=== PATIENT | female | born 2000 | race Caucasian/White ===

== ENCOUNTER 2023-08-07 13:28 | Observation (INO) | payer SELFPAY ==
[2023-08-07] VITALS (14 sets, daily range): BP systolic 125–194; BP diastolic 79–129; PULSE 64–122; RESP 16–18; TEMP 37–37.7; O2SAT 95–96; BMI 23.8
--- NOTE | 2023-08-07 13:52 | ED.GENADUL1 ---
HPI - General Adult General Chief complaint: Abdominal Pain Stated complaint: ABD PAIN Time Seen by Provider: 08/07/23 13:31 Source: patient Mode of arrival: Wheelchair Limitations: no limitations History of Present Illness HPI narrative: Patient presents with recurrent nausea, vomiting and abdominal pain. She has presented to [facility] emergency department for evaluation several times this week. She just left there a couple of hours ago. She had blood testing and was given medications for being discharged home with prescriptions for additional outpatient medications. She is requesting admission. She said that for about would not admit her. She told me that she is unable to keep anything down orally despite taking medications on an outpatient basis. Call placed to [facility] emergency department to get a copy of the patient's chart from today. She said that her workup at [facility] was negative. She told me that she last smoked marijuana about a week ago. Related Data Allergies Allergy/AdvReac Type Severity Reaction Status Date / Time No Known Drug Allergies Allergy Verified 08/07/23 13:39 [facility] Social History Smoking status: Heavy tobacco smoker Exam Narrative Exam Narrative: Nurses notes and vital signs reviewed and patient is not hypoxic. afebrile General: Well-appearing and in no apparent distress. Skin: Warm, dry, no pallor noted. No rash. Head: Normocephalic, atraumatic. Neck: Supple, non-tender. No meningismus Eye: Pupils are equal, round and EOMI. No scleral icterus. Ears, Nose, Mouth, and Throat: Oral mucosa is dry Cardiovascular: Regular Rate and Rhythm without murmur, gallop or rub. Respiratory: No accessory muscle use or respiratory distress. Lungs are clear to auscultation, no wheezing, rales or rhonchi Back: No CVA tenderness Musculoskeletal: normal ROM, no lower extremity edema/swelling GI: Abdomen is soft, non-distended. Normal bowel sounds. No masses appreciated. Diffuse tenderness to palpation. No rebound, guarding, or rigidity noted. Neurological: A&O x4. No cranial nerve dysfunction observed. No truncal ataxia. Moves all extremities. Sensation intact. Psychiatric: Cooperative and interactive. Normal mood and affect. Constitutional Vital Signs, click to edit/add: Last Vital Signs Temp 98.8 F 08/07/23 13:33 Pulse 64 08/07/23 13:33 Resp 16 08/07/23 13:33 BP 148/86 H 08/07/23 13:47 Pulse Ox 96 08/07/23 13:33 O2 Del Method Room Air 08/07/23 13:33 Course Vital Signs Vital signs: Vital Signs Temperature 98.8 F 08/07/23 13:33 Pulse Rate 64 08/07/23 13:33 Respiratory Rate 16 08/07/23 13:33 Pulse Oximetry 96 08/07/23 13:33 Oxygen Delivery Method Room Air 08/07/23 13:33 Temperature 98.8 F 08/07/23 13:33 Pulse Rate 64 08/07/23 13:33 Respiratory Rate 16 08/07/23 13:33 Blood Pressure 148/86 H 08/07/23 13:47 Pulse Oximetry 96 08/07/23 13:33 Oxygen Delivery Method Room Air 08/07/23 13:33 Medical Decision Making MDM Narrative Medical decision making narrative: Patient with cyclic vomiting and recurrent, intractable abdominal pain, nausea and vomiting, prsents from [facility] requesting admission after [facility] refused to admit her. Patient just had blood drawn earlier today - no need to repeat. Case discussed with Dr Phillips who agreed to admit the patient to his service. Patient ordered to receive IV Haldol, IV Reglan and NS IVF. Discharge Plan Discharge Chief Complaint: Abdominal Pain Clinical Impression: Cyclic vomiting syndrome Patient Disposition: Admitted as Observation Time of Disposition Decision: 13:52
--- NOTE | 2023-08-07 15:38 | P.HP_ITS ---
<Statement entered by Shaikh Alan MD - 08/07/23 17:03> This documentation has been reviewed and approved. Patient was not seen for this encounter but her chart was reviewed and case discussed with Alena. Presented with intractable nausea and vomiting likely sec to Cyclic vomiting syndrome. Admitted for observation for IV fluids, supportive care so that her symptoms can improve and she is able to tolerate PO diet. H&P: HPI History of Present Illness Chief complaint: ABD PAIN CYCLIC VOMITING Narrative: 08/07/23 1445 This is a 22-year-old female patient with a benign past medical history except for tobacco and marijuana abuse, who presented to the ED complaining of persiste nt nausea and vomiting and abdominal pain for the last 4 to 5 days. She has presented to the [place] emergency department for evaluation several times earlier this week and in fact just left their ED a few hours before presentation at our facility. The patient reported that [place] refused to admit her and she was requesting admission at our facility. Her records from [place] were obtained and were noted as follows by the ED provider Dr. Bryson Garcia. Review of charts from [place] emergency department reveals that the patient had CT scanning of the abdomen pelvis which was notable for nonspecific small lymph nodes in the mesentery but nothing else worrisome. White count was normal, hemoglobin 15.6, potassium 3.1, urine sample was notable for protein and ketones, abdominal x-rays did not show any evidence of obstruction and a pelvic ultrasound was also unremarkable without evidence of ovarian torsion. The patient received GI cocktail, sucralfate and dicyclomine in the emergency department. She also received normal saline IV fluid. She was apparently discharged home with prescriptions for Benadryl, Toradol. Labs were not repeated at our ED. She is being admitted to the hospitalist service under observation for cyclic vomiting syndrome. At the time of my exam the pt is resting comfortably on a cart in the ED. She has dry mucous membranes. She reports her initial symptom was severe colicky type abdominal pain followed by the inability to keep any food or fluids down for the last 3-4 days. She denies diarrhea, fever, or recent sick contacts. She admits to frequent marijuana use, but reports no intake x 1 week. We discussed the need for complete cannabis cessation and that CHS can take some time to resolve after cessation of use. We also discussed that measures implemented during this hospitalization may not resolve or even significantly improve her symptoms. She verbalizes understanding. For now we will attempt a multi-modal approach with IV Haldol and Reglan x 1, PRN oxycodone, PRN zofran, capsaicin cream QID, and heating pad or showers PRN. Discharge likely in 12-24 hrs. Review of Systems ROS Status of ROS 10 or more systems reviewed and unremark able except as noted in history and below [facility] Medical History (Updated 08/07/23 @ 16:01 by Alena Law NP) Marijuana abuse, continuous ?F12.10 - Cannabis abuse, uncomplicated (ICD-10) Tobacco dependence ?F17.200 - Nicotine dependence, unspecified, uncomplicated (ICD-10) Social History (Updated 08/07/23 @ 16:02 by No Mendez) Within the past year, how often did you have a drink containing alcohol: 2-4 times a month Smoking status: Heavy tobacco smoker Non-prescribed substance use: cannabis (any form) Previous occupational history: Programeter Known occupational exposures/hazards: No Highest level of school completed/degree received: high school graduate Are you now , , , , never or living with a partner: never In a typical week, how many times do you talk on the telephone with family, friends, or neighbors: 3 or more times per week How often do you get together with friends or relatives: 3 or more times per week Little interest or pleasure in doing things: not at all Feeling down, depressed, or hopeless: not at all Feel stressed/tense/nervous/anxious/difficulty sleeping: not at all Do you think of yourself as: straight/heterosexual Gender Identity: female Meds Home Medications and Allergies Allergies Allergy/AdvReac Type Severity Reaction Status Date / Time No Known Drug Allergies Allergy Verified 08/07/23 13:39 Exam Constitutional Vital Signs, click to edit/add: Last Vital Signs Temp 98.8 F 08/07/23 13:33 Pulse 64 08/07/23 13:33 Resp 16 08/07/23 13:33 BP 148/86 H 08/07/23 13:47 Pulse Ox 96 08/07/23 13:33 O2 Del Method Room Air 08/07/23 13:33 Common normals: no apparent distress, oriented x3, alert and well nourished General appearance: cooperative Orientation/consciousness: Yes awake HENMT Common normals: normocephalic, head/scalp atraumatic, hearing grossly normal b ilaterally, external nose normal and moist oral mucous membranes Eye Common normals: PERRL, EOMs intact bilaterally, conjunctivae normal and no scleral icterus Alignment: alignment normal Eyelid: eyelids normal Neck & C-Spine Common normals: full ROM, supple and no JVD Chest Common normals: inspection of chest normal Chest: symmetrical chest wall rise Respiratory Common normals: normal respiratory effort, no retractions and no use of accessory muscles Effort & inspection: able to speak in complete sentences Auscultation: wheezes (Faint EE ANDREW) Cardio Common normals: no JVD, regular rate, regular rhythm, S1 normal heart sound, S2 normal heart sound, no gallops, no clicks, no murmurs, no rub and peripheral pulses 2+ throughout GI Common normals: Normal to inspection, nondistended, normoactive bowel sounds present, soft to palpation, no hepatosplenomegaly, no masses and no bruits Palpation: tender (Diffuse, non-focal); not firm, no guarding, not rigid and no rebound tenderness present Bladder/kidney exam: bladder normal to palpation Back & Pelvis Common normals: thoracic and lumbar spine normal to inspection Extremity Common normals: normal capillary refill and no pedal edema General: normal exam except as noted; no clubbing and no cyanosis Neuro [place] Coma Scale: GCS not evaluated Common normals: CN's II-XII intact bilaterally, moves all extremities, no focal motor deficits and no sensory deficits noted Speech: speech normal Motor exam: strength 5/5 throughout Psych Common normals: mental status grossly normal, thought process normal, affect normal and activity/motor behavior normal Results Pulse Oximetry Attestation: I have reviewed the pertinent pulse oximetry results. Assessment and Plan Assessment and Plan (1) Cyclic vomiting syndrome: Assessment and Plan: ACUTE * Adm observation * Suspect 2/2 CHS * LR @ 125/hr * IVP Haldol and Reglan x 1 * Zofran IVP PRN * Capsaicin QID, Oxycodone q6h PRN * Warm application w/ heating pad or showers to abdomen * CBC, CMP in AM (2) Dehydration: Assessment and Plan: ACUTE * 2/2 poor oral intake and cyclic vomiting * IVF as above * CMP in AM (3) Hypokalemia: Assessment and Plan: ACUTE * Mild, 3.1 at [place] ED earlier today * No documentation of treatment * 2/2 cyclic vomiting/GI losses * Replete w/ 20 meq KCL IV * Tele monitoring * Repeat CMP & check Mag level too in AM (4) Tobacco dependence: Assessment and Plan: CHRONIC * Pt reports daily, frequent vape use * 7mg Nicoderm patch daily * Tobacco cessation advised (5) Marijuana abuse, continuous: Assessment and Plan: CHRONIC * Complete cessation advised - pt verbalizes understanding * Suspect CHS as source of cyclic vomiting
[2023-08-07] MEDS: OXYCODONE HCL 5 MG TABLET PO ×2 (16:11→21:58)
--- NOTE | 2023-08-07 16:11 | PC.NURSE ---
Meds not marked off in MAR that should have been given in ER. Memorandum Statement Clerk called and talked with ROBB Bahena. She states she didn't see the orders so those meds were never given. Memorandum Statement Clerk marked off in MAR as not given.
[2023-08-07] MEDS: LACTATED RINGER'S SOLUTION 1,000 ML 125 ML IV ×2 (16:12→23:17)
[2023-08-07] MEDS: HYDRALAZINE HCL 20 MG/ML VIAL 10 MG IVP (16:13)
--- NOTE | 2023-08-07 16:43 | ECG_ITS ---
[facility] Test Date: 2023-08-07 Pat Name: JASON LI Department: Room: [facility] Gender: Female Business Project Manager: : 2000 Requested By: Order Number: [id number] Reading MD: LYNN MARTINEZ Measurements Intervals [place] Rate: 79 P: 9 TX: 146 QRS: 62 QRSD: 81 T: 34 QT: 410 QTc: 471 Interpretive Statements SINUS RHYTHM WITH SINUS ARRHYTHMIA Nonspecific ST/T wave changes, consider anterior ischemia No previous ECG available for comparison Electronically Signed On 08-08-2023 7:26:55 EST by LYNN MARTINEZ
[2023-08-07] MEDS: ACETAMINOPHEN 325 MG TABLET 650 MG PO (17:43)
[2023-08-07] MEDS: HALOPERIDOL LACTATE 5 MG/ML VIAL IV (17:45)
[2023-08-07] MEDS: POTASSIUM CHLORIDE IN WATER 10 MEQ/100 ML PIGGYBACK 100 MEQ IV ×2 (18:18→20:46)
[2023-08-07] MEDS: METOCLOPRAMIDE HCL 10 MG/2 ML VIAL IVP (18:18)
[2023-08-07] MEDS: ENOXAPARIN SODIUM 40 MG/0.4 ML SYRINGE SUBQ (18:44)
[2023-08-07] MEDS: 0.9 % SODIUM CHLORIDE 1,000 ML 1000 ML IV (20:45)
[2023-08-07] MEDS: ONDANSETRON PF 4 MG/2 ML VIAL IV (21:59)
[2023-08-07] MEDS: CAPSAICIN 0.025% CREAM 60 GM TUBE 1 APPLIC TOPICAL (22:04)
[2023-08-07 22:11] LABS: Amphetamine Screen Urine NEGATIVE (NEGATIVE); Barbiturates Screen Urine NEGATIVE (NEGATIVE); Benzodiazepines Screen Urine NEGATIVE (NEGATIVE); Buprenorphine Screen Urine NEGATIVE (NEGATIVE); Cannabinoid Screen Urine POSITIVE (NEGATIVE); Cocaine Screen Urine NEGATIVE (NEGATIVE); Methadone Screen Urine NEGATIVE (NEGATIVE); Methamphetamines Screen Urine NEGATIVE (NEGATIVE); Opiate Screen Urine NEGATIVE (NEGATIVE); Oxycodone Screen Urine NEGATIVE (NEGATIVE); Phencyclidine Screen Urine NEGATIVE (NEGATIVE); Tricyclic Antidepressant Urine NEGATIVE (NEGATIVE)
[2023-08-08] VITALS (11 sets, daily range): BP systolic 123–127; BP diastolic 73–77; PULSE 58–92; RESP 18; TEMP 36.7–37.1; O2SAT 95
[2023-08-08 04:26] LABS: Basophils Percent Auto 0.3 % (0.2-2.0); Eosinophils Percent Auto 0.1 % (0.9-7.0); Hematocrit 39.5 % (36.0-48.0); Hemoglobin 12.8 g/dL (12.0-16.0); Immature Granulocytes Abs Auto 0.02 10^3/uL (0.00-0.03); Immature Granulocytes Pct Auto 0.3 % (0.0-0.5); Lymphocytes Percent Auto 26.6 % (20.5-60.0); Mean Corpuscular HGB Conc 32.4 g/dL (29.9-35.2); Mean Corpuscular Hemoglobin 28.5 pg (26.7-34.0); Mean Platelet Volume 9.6 fL (9.5-13.5); Monocytes Absolute Auto 0.7 10^3/uL (0.3-0.8); Monocytes Percent Auto 9.1 % (1.7-12.0); Neutrophils Absolute Auto 4.9 10^3/uL (1.4-6.5); Neutrophils Percent Auto 63.6 % (43.0-75.0); Platelet Count 235 10^3/uL (150-450); Red Blood Count 4.49 10^6/uL (4.20-5.40); Red Cell Distribution Width 12.6 % (11.0-15.0); White Blood Count 7.6 10^3/uL (4.0-11.0)
[2023-08-08 04:43] LABS: Magnesium 2.1 mg/dL (1.8-2.4)
[2023-08-08 04:48] LABS: Alanine Aminotransferase 16 U/L (14-59); Albumin Globulin Ratio 1.2; Albumin Level 3.3 g/dL (3.4-5.0); Alkaline Phosphatase 42 U/L (46-116); Anion Gap 13.7; Aspartate Amino Transferase 18 U/L (15-37); BUN Creatinine Ratio 11.9; Calcium 8.5 mg/dL (8.5-10.1); Carbon Dioxide 22.9 mmol/L (21.0-32.0); Chloride 108 mmol/L (98-107); Estimated GFR (African America >60 (>=60); Estimated GFR (Non-African Ame >60 (>=60); Globulin 2.8 g/dL; Glucose 94 mg/dL (74-106); Potassium 3.6 mmol/L (3.5-5.1); Sodium 141 mmol/L (136-145); Total Protein 6.1 g/dL (6.4-8.2)
[2023-08-08] MEDS: LACTATED RINGER'S SOLUTION 1,000 ML 125 ML IV ×2 (05:52→14:17)
[2023-08-08] MEDS: CAPSAICIN 0.025% CREAM 60 GM TUBE 1 APPLIC TOPICAL ×3 (05:53→17:23)
[2023-08-08] MEDS: OXYCODONE HCL 5 MG TABLET PO (09:32)
[2023-08-08] MEDS: ONDANSETRON PF 4 MG/2 ML VIAL IV (09:32)
[2023-08-08] MEDS: PANTOPRAZOLE SODIUM 40 MG VIAL IV (11:59)
[2023-08-08] MEDS: ALPRAZOLAM 1 MG TABLET PO (11:59)
[2023-08-08] MEDS: ACETAMINOPHEN 325 MG TABLET 650 MG PO (11:59)
--- NOTE | 2023-08-08 12:41 | CM.NOTE ---
Rounds made with Dr. Phillips, discussed with pt cyclic vomiting and cause for condition. Pt's abdominal pain and nausea continue, no discharge today.
--- NOTE | 2023-08-08 16:31 | P.DS_ITS ---
DS: Providers Provider Date of admission: 08/07/23 15:25 Primary care physician: Non-Staff Physician, Attending physician on discharge: Shaikh Alan Discharging clinician: Shaikh Alan Anticipated date of discharge: 08/08/23 DS: Diagnosis Discharge Diagnosis (1) Cyclic vomiting syndrome: Assessment and plan: Symptoms well controlled now. Likely due to marijuana use. Stable for discharge on zofran as needed (2) Dehydration: Assessment and plan: due to poor PO intake, nausea, vomiting. Received IV hydration for it. Able to tolerate PO diet now. Stable for d/c (3) Hypokalemia: Assessment and plan: Due to nausea, vomiting. Repleted. (4) Tobacco dependence: Assessment and plan: Counseled on smoking cessation (5) Marijuana abuse, continuous: Assessment and plan: Counseled and educated on marijuana abuse. DS: Summary Hospital Course Hospital Course: Patient presented with 4-5 day hx of intractable nausea and vomiting sec to cannabis hyperemesis syndrome and cyclical vomiting and was admitted overnight for intractable nausea, vomiting and inability to tolerate PO diet. She was treated with IVF, anti emetics, heating pad, capsaicin cream. Earlier this morning, I noted that patient was also very anxious for which I ordered Xanax for her. Earlier in morning, she was still experiencing nausea and was unable to keep her breakfast down. However, later in the afternoon, she felt better, was resting comfortable and was able to keep her lunch down. Stable for discharge. Patient encouraged to refrain from marijuana use. Will d/c on PO zofran as needed. Status at Discharge Functional status at discharge: independent ambulation Overall status at discharge: patient is back to baseline Time Spent with Patient Time attestation: Total time spent providing and/or coordinating discharge services: Time spent: greater than 30 minutes Exam Constitutional Vital Signs, click to edit/add: Last Vital Signs Temp 98.0 F 08/08/23 14:00 Pulse 92 H 08/08/23 15:00 Resp 18 08/08/23 14:00 BP 123/77 08/08/23 14:00 Pulse Ox 95 08/08/23 14:00 O2 Del Method Room Air 08/08/23 14:00 General appearance: cooperative Orientation/consciousness: Yes awake, Yes oriented to person, Yes oriented to place and Yes oriented to time Respiratory Common normals: normal respiratory effort and no use of accessory muscles Effort & inspection: able to speak in complete sentences Other: Faint exp wheezing Cardio Common normals: no JVD, regular rate, regular rhythm, S1 normal heart sound and S2 normal heart sound GI Common normals: Normal to inspection, nondistended, normoactive bowel sounds present, soft to palpation and non-tender Neuro Common normals: oriented x3, CN's II-XII intact bilaterally, moves all extremities and no focal motor deficits DS: Data Data Completed and Pending Labs on day of discharge: Labs from last 24 hours 08/08/23 08/07/23 04:16 21:45 WBC 7.6 RBC 4.49 Hgb 12.8 Hct 39.5 MCV 88.0 MCH 28.5 MCHC 32.4 RDW 12.6 Plt Count 235 MPV 9.6 Neut % (Auto) 63.6 Lymph % (Auto) 26.6 [place] % (Auto) 9.1 Eos % (Auto) 0.1 L Baso % (Auto) 0.3 Neut # (Auto) 4.9 Lymph # (Auto) 2.0 [place] # (Auto) 0.7 Eos # (Auto) 0.0 Baso # (Auto) 0.0 Abs Immat Gran (auto) 0.02 Imm/Tot Granulo (auto) 0.3 Sodium 141 Potassium 3.6 Chloride 108 H Carbon Dioxide 22.9 Anion Gap 13.7 BUN 7.0 Creatinine 0.59 Est GFR ( Amer) >60 Est GFR (Non-Af Amer) >60 BUN/Creatinine Ratio 11.9 Glucose 94 Calcium 8.5 Magnesium 2.1 Total Bilirubin 1.0 AST 18 ALT 16 Alkaline Phosphatase 42 L Total Protein 6.1 L Albumin 3.3 L Globulin 2.8 Albumin/Globulin Ratio 1.2 Urine Opiates Screen Negative Ur Buprenorphine Scrn Negative Ur Oxycodone Screen Negative Urine Methadone Screen Negative Ur Barbiturates Screen Negative U Tricyclic Antidepress Negative Ur Phencyclidine Scrn Negative Ur Amphetamines Screen Negative U Methamphetamines Scrn Negative U Benzodiazepines Scrn Negative Urine Cocaine Screen Negative U Cannabinoids Screen Positive A Discharge Plan Discharge Disposition: Home, Self-Care Discharge Medications: New ondansetron 4 mg tablet,disintegrating 4 mg PO Q8H PRN (Reason: nausea and vomiting) 5 Days Qty: 10 0RF Activity: increase activity as tolerated Diet: advance to your usual diet Forms: Portal Instructions Follow Up Appointments: F/u with PCP in one week
[2023-08-08] MEDS: IPRATROPIUM/ALBUTEROL SULFATE 3 ML AMPUL.NEB IH (16:49)
--- NOTE | 2023-08-11 10:32 | CM.DCFOLLOWU ---
Person spoke with: patient Patient has been admitted to [facility].
== END 2023-08-08 18:03 | disposition home or self-care (01) ==
LOC: ER 14:45 → MS 15:33
PROVIDERS: Nurse Practitioner; Admitting Provider Internal Medicine; Emergency Provider Emergency Medicine; Visit Provider Internal Medicine
DX: R11.15 Cyclical vomiting syndrome unrelated to migraine (principal); E86.0 Dehydration; E87.6 Hypokalemia; F17.210 Nicotine dependence, cigarettes, uncomplicated; F12.10 Cannabis abuse, uncomplicated
CPT/HCPCS: 36415; 80053; 80307; 83735; 85025; 93005; 94640; 96361; 96365; 96366; 96372; 96375; 96376; 99285; G0378; J0360; J1630; J1650; J2405; J2765; J3480

== ENCOUNTER 2023-08-11 14:00 | Emergency (ER) | payer SELFPAY ==
--- OUTSIDE RECORDS SUMMARY | 2023-08-11 14:15 | XMS_ITS | CCD ---
Author Name Unknown Address [address] [place] [address] Organization [facility] Care Team Providers Care Management Supervisor Name Role Phone Yulissa Sanjuana Primary Care Unavailable Gonya, Sanjuana Attending Unavailable SCHERGER GONYA, SANJUANA M Primary Care Unav ailable URBINAGOSIA Attending Unavailable BLAS, ROBERTO Attending Unavailable BLAS, ROBERTO Referring Unavailable SCHERGER GONYA, SANJUANA M Primary Care Unav ailable SCHERGER GONYA, SANJUANA M Primary Care Unav ailable DENISE KEY Attending Unavailable SCHERGER GONYA, SANJUANA M Primary Care Unav ailable SCHERGER GONYA, SANJUANA M Primary Care Unav ailable VICTORINO, MARLENA FABIAN Attending Unavailable VICTORINO, MARLENA FABIAN Attending Unavailable VICOTRINO, MARLENA FABIAN Referring Unavailable SCHERGER GONYA, SANJUANA M Primary Care Unav ailable VICTORINO, MARLENA FABIAN Attending Unavailable VICTORINO, MARLENA FABIAN Referring Unavailable SCHERGER GONYA, SANJUANA M Primary Care Unav ailable SCHERGER GONYA, SANJUANA M Primary Care Unav ailable TYE OLIVER Attending Unavailable ANTOLIN, MUHAMID M Admitting Unavailable Allergies Allergy Classification Reported Allergen(s) Allergy Type Date of Onset Reaction(s) Facility (1 source) No Known Medication Allergies; Translations: [No Known Medication Allergies] Propensity to adverse reactions to drug (disorder) [facility] Repository (1 source) RINGER'S SOLUTION,LACTATE D; Translations: [RINGER'S SOLUTION,LACTATE D] Propensity to adverse reactions to drug (disorder) [facility] Repository Problems Problem Classification Problem Date Documented Da te Episodic/Chronic Abdominal pain (3 sources) Generalized abdominal pain; Translations: [Unspecified abdominal pain] Onset: 08-03-2023 Episodic Fluid and electrolyte disorders (2 sources) Hypokalemia; Translations: [Dehydration] Onset: 08-07-2023 Episodic Menstrual disorders (1 source) Dysmenorrhea, unspecified; Translations: [Dysmenorrhea, unspecified] Onset: 08-07-2023 Chronic Nausea and vomiting (2 sources) Nausea with vomiting, unspecified; Translations: [Vomiting] Onset: 08-03-2023 Episodic Substance-related disorders (2 sources) Cannabis abuse, uncomplicated; Translations: [Cannabis abuse with other cannabis-induced disorder] Onset: 08-06-2023 Chronic Unclassified (1 source) vomiting, lightheaded Onset: 08-03-2023 Results Test Name Value Interpretation Reference Range Facility CBC AND AUTO DIFFon 08-11-19 ABSOLUTE BASOPHIL 0.0 X10E9/L Normal 0.0-0.[address] [facility] Comment on above: Performed By: #### C MICAH CMP, 3040-3, , 77024-2 #### [facility] ([id number]) [address] [place] [address] 68705 ABSOLUTE NEUTROPHIL 5.8 X10E9/L Normal 1.5-6.6 [facility] Comment on above: Performed By: #### C MICAH, CMP, 3040-3, , 42554-0 #### [facility] ([id number]) [address] [place] [address] 17350 Basophils/100 WBC (Bld) 0.2 % Normal [facility] Comment on above: Performed By: #### C BCA, CMP, 3040-3, , 74461-4 #### [facility] ([id number]) [address] [place] [address] 42165 Eosinophils (Bld) [#/Vol] 0.0 10*3/uL Normal 0.0-0.[address] [facility] Comment on above: Performed By: #### Vincenzo BCA, CMP, 3040-3, , 38561-6 #### [facility] ([id number]) [address] [place] [address] 79868 Eosinophils/100 WBC (Bld) 0.2 % Normal [facility] Comment on above: Performed By: #### C MICAH, CMP, 3040-3, , 99099-0 #### [facility] ([id number]) [address] [place] [address] 70639 Erythrocyte distribution width (RBC) [Ratio] 13.2 % Normal 11.5-15.[address] [facility] Comment on above: Performed By: #### C MICAH, CMP, 3039-3, , 35128-0 #### [facility] ([id number]) [address] [place] [address] 47606 Hematocrit (Bld) [Volume fraction] 42.0 % Normal 35-[address] [facility] Comment on above: Performed By: #### C BCA, CMP, 0-3, , 36130-2 #### [facility] ([id number]) [address] [place] [address] 60256 Hemoglobin (Bld) [Mass/Vol] 14.4 g/dL Normal 11.7-15.[address] [facility] Comment on above: Performed By: #### Vincenzo OBRIEN, CMP, 0-3, , 37925-7 #### [facility] ([id number]) [address] [place] [address] 67511 Lymphocytes (Bld) [#/Vol] 1.0 10*3/uL Normal 1.0-3.[address] [facility] Comment on above: Performed By: #### C BCA, CMP, 3040-3, , 95814-2 #### [facility] ([id number]) [address] [place] [address] 34303 Lymphocytes/100 WBC (Bld) 14.1 % Normal [facility] Comment on above: Performed By: #### C BCA, CMP, 3040-3, 91256-8, 71779-0 #### [facility] ([id number]) [address] [place] [address] 49104 MCH (RBC) [Entitic mass] 29.1 pg Normal 27-[address] [facility] Comment on above: Performed By: #### C BCA, CMP, 3040-3, 98616-9, 91715-3 #### [facility] ([id number]) [address] [place] [address] 61975 MCHC (RBC) [Mass/Vol] 34.2 g/dL Normal 32-36 [facility] Comment on above: Performed By: #### C BCA, CMP, 3040-3, 95418-8, 64420-0 #### [facility] ([id number]) [address] [place] [address] 76564 MCV (RBC) [Entitic vol] 85 fL Normal 80-[address] [facility] Comment on above: Performed By: #### C BCA, CMP, 3040-3, 45121-1, 19750-0 #### [facility] ([id number]) [address] [place] [address] 40488 Monocytes (Bld) [#/Vol] 0.6 10*3/uL Normal 0-0.[address] [facility] Comment on above: Performed By: #### C BCA, CMP, 3040-3, 37110-5, 54709-3 #### [facility] ([id number]) [address] [place] [address] 64108 Monocytes/100 WBC (Bld) 7.7 % Normal [facility] Comment on above: Performed By: #### C BCA, CMP, 3040-3, 56868-3, 73632-2 #### [facility] ([id number]) [address] [place] [address] [place] [address] Neutrophils/100 WBC (Bld) 77.8 % Normal [facility] Comment on above: Performed By: #### C BCA, CMP, 3040-3, 54690-3, 51321-9 #### [facility] ([id number]) [address] [place] [address] 86656 Platelet mean volume (Bld) [Entitic vol] 8.1 fL Normal 7-[address] [facility] Comment on above: Performed By: #### C BCA, CMP, 3040-3, 10354-0, 19389-4 #### [facility] ([id number]) [address] [place] [address] 44779 Platelets (Bld) [#/Vol] 253 10*3/uL Normal 150-[address] [facility] Comment on above: Performed By: #### Vincenzo BCA, CMP, 3040-3, , 23288-4 #### [facility] ([id number]) [address] [place] [address] 17304 RBC COUNT 4.95 X10E12/L Normal 3.80-5.[address] [facility] Comment on above: Performed By: #### C BCA, CMP, 3040-3, , 59408-4 #### [facility] ([id number]) [address] [place] [address] 55701 WBC (Bld) [#/Vol] 7.4 10*3/uL Normal 4.0-11.[address] [facility] Comment on above: Performed By: #### C BCA, CMP, 3040-3, , 05117-6 #### [facility] ([id number]) [address] [place] [address] 89808 COMPREHENSIVE METABOLIC PANE Taran 08-11-2023 Albumin [Mass/Vol] 4.6 g/dL Normal 3.2-5.[address] [facility] Comment on above: Performed By: #### C BCA, CMP, 3040-3, 38745-0, 52097-0 #### [facility] ([id number]) [address] [place] [address] 18672 ALP [Catalytic activity/Vol] 47 U/L Normal 39-[address] [facility] Comment on above: Performed By: #### C BCA, CMP, 3040-3, 12152-9, 25392-0 #### [facility] ([id number]) [address] [place] [address] 34281 ALT [Catalytic activity/Vol] 17 U/L Normal 0-[address] [facility] Comment on above: Performed By: #### C BCA, CMP, 3040-3, 14450-7, 71848-9 #### [facility] ([id number]) [address] [place] [address] 67138 Anion gap [Moles/Vol] 9 mmol/L Normal 5-15 [facility] Comment on above: Performed By: #### C BCA, CMP, 3040-3, , 65509-6 #### [facility] ([id number]) [address] [place] [address] 43653 AST [Catalytic activity/Vol] 16 U/L Normal 0-[address] [facility] Comment on above: Performed By: #### C BCA, CMP, 3040-3, , 21659-7 #### [facility] ([id number]) [address] [place] [address] 11292 Bilirubin [Mass/Vol] 0.8 mg/dL Normal 0.3-1.2 [facility] Comment on above: Performed By: #### C BCA, CMP, 3040-3, 73809-6, 56225-1 #### [facility] ([id number]) [address] [place] [address] 19714 Calcium [Mass/Vol] 9.0 mg/dL Normal 8.5-10.[address] [facility] Comment on above: Performed By: #### C MICAH, CMP, 3040-3, 65284-4, 68081-2 #### [facility] ([id number]) [address] [place] [address] 98156 Chloride [Moles/Vol] 102 mmol/L Normal 98-109 [facility] Comment on above: Performed By: #### C BCA, CMP, 3040-3, , 33918-7 #### [facility] ([id number]) [address] [place] [address] 59240 CO2 [Moles/Vol] 23 mmol/L Normal 22-[address] [facility] Comment on above: Performed By: #### C MICAH, CMP, 0-3, , 60826-6 #### [facility] ([id number]) [address] [place] [address] 41927 Creatinine [Mass/Vol] 0.61 mg/dL Normal 0.40-1.00 [facility] Comment on above: Result Comment: METH OD TRACEABLE TO IDMS STANDARD Performed By: #### C MICAH, CMP, 0-3, , 07105-7 #### [facility] ([id number]) [address] [place] [address] 05398 eGFR (CKD-EPI) NON-RACE DEPENDENT >90 Normal >[address] [facility] Comment on above: Result Comment: Reported eGFR is based on the CKD-EPI 2021 equation that does not use a race coefficient. Performed By: #### C BCA, CMP, 3040-3, 49783-9, 07527-8 #### [facility] ([id number]) [address] [place] [address] 57314 Glucose [Mass/Vol] 90 mg/dL Normal 65-[address] [facility] Comment on above: Performed By: #### C BCA, CMP, 3040-3, , 87802-5 #### [facility] ([id number]) [address] [place] [address] 91425 Potassium [Moles/Vol] 4.0 mmol/L Normal 3.5-5.0 [facility] Comment on above: Performed By: #### C BCA, CMP, 3040-3, 07591-3, 31898-9 #### [facility] ([id number]) [address] [place] [address] 46276 Protein [Mass/Vol] 7.4 g/dL Normal 6.0-8.[address] [facility] Comment on above: Performed By: #### C BCA, CMP, 0-3, , 72117-9 #### [facility] ([id number]) [address] [place] [address] 67261 Sodium [Moles/Vol] 134 mmol/L Normal 134-[address] [facility] Comment on above: Performed By: #### C BCA, CMP, 0-3, , 58097-2 #### [facility] ([id number]) [address] [place] [address] 08159 Urea nitrogen [Mass/Vol] 7 mg/dL Normal 5-[address] [facility] Comment on above: Performed By: #### C BCA, CMP, 3040-3, , 05117-1 #### [facility] ([id number]) [address] [place] [address] 27484 MAGNESIUMon 08-11-2023 Magnesium [Mass/Vol] 2.3 mg/dL Normal 1.8-2.6 [facility] Comment on above: Performed By: #### C BCA, CMP, 3040-3, , 41386-3 #### [facility] ([id number]) [address] [place] [address] 66800 COMPLETE BLOOD COUNTon 08-10 Erythrocyte distribution width (RBC) [Ratio] 13.1 % Normal 11.5-15.[address] [facility] Comment on above: Performed By: #### C MICAH, CMP, 3040-3, 69170-9, 52735-3 #### [facility] ([id number]) [address] [place] [address] 41706 Hematocrit (Bld) [Volume fraction] 47.9 % High 35-[address] [facility] Comment on above: Performed By: #### C BCA, CMP, 3040-3, , 79221-0 #### [facility] ([id number]) [address] [place] [address] 76010 Hemoglobin (Bld) [Mass/Vol] 16.1 g/dL High 11.7-15.[address] [facility] Comment on above: Performed By: #### C MICAH, CMP, 3040-3, , 09979-0 #### [facility] ([id number]) [address] [place] [address] 30110 MCH (RBC) [Entitic mass] 28.5 pg Normal 27-[address] [facility] Comment on above: Performed By: #### C MICAH, CMP, 3040-3, , 77670-4 #### [facility] ([id number]) [address] [place] [address] 72485 MCHC (RBC) [Mass/Vol] 33.6 g/dL Normal 32-36 [facility] Comment on above: Performed By: #### C BCA, CMP, 3040-3, , 19425-4 #### [facility] ([id number]) [address] [place] [address] 03510 MCV (RBC) [Entitic vol] 85 fL Normal 80-[address] [facility] Comment on above: Performed By: #### C BCA, CMP, 3040-3, , #### [facility] ([id number]) [address] [place] [address] 73895 Platelet mean volume (Bld) [Entitic vol] 8.2 fL Normal 7-[address] [facility] Comment on above: Performed By: #### C BCA, CMP, 3040-3, 89457-1, 79498-5 #### [facility] ([id number]) [address] [place] [address] 77727 Platelets (Bld) [#/Vol] 320 10*3/uL Normal 150-[address] [facility] Comment on above: Performed By: #### C BCA, CMP, 3040-3, , 40085-1 #### [facility] ([id number]) [address] [place] [address] 67128 RBC COUNT 5.65 X10E12/L High 3.80-5.[address] [facility] Comment on above: Performed By: #### C BCA, CMP, 3040-3, 08884-8, 52594-5 #### [facility] ([id number]) [address] [place] [address] 76227 WBC (Bld) [#/Vol] 13.1 10*3/uL High 4.0-11.0 [facility] Comment on above: Performed By: #### C BCA, CMP, 3040-3, , 61147-9 #### [facility] ([id number]) [address] [place] [address] 21284 COMPREHENSIVE METABOLIC PANE Taran 08-10-2023 Albumin [Mass/Vol] 5.5 g/dL High 3.2-5.[address] [facility] Comment on above: Performed By: #### C BCA, CMP, 3040-3, 25805-7, 47198-7 #### [facility] ([id number]) [address] [place] [address] 01659 ALP [Catalytic activity/Vol] 56 U/L Normal 39-[address] [facility] Comment on above: Performed By: #### C BCA, CMP, 3040-3, 74415-9, 99720-2 #### [facility] ([id number]) [address] [place] [address] 25531 ALT [Catalytic activity/Vol] 19 U/L Normal 0-[address] [facility] Comment on above: Performed By: #### C BCA, CMP, 3040-3, 48072-4, 47768-6 #### [facility] ([id number]) [address] [place] [address] 63079 Anion gap [Moles/Vol] 14 mmol/L Normal 5-15 [facility] Comment on above: Performed By: #### C BCA, CMP, 3040-3, 59719-1, 66625-0 #### [facility] ([id number]) [address] [place] [address] 78453 AST [Catalytic activity/Vol] 28 U/L Normal 0-[address] [facility] Comment on above: Performed By: #### C BCA, CMP, 3040-3, , 55674-1 #### [facility] ([id number]) [address] [place] [address] 28469 Bilirubin [Mass/Vol] 0.9 mg/dL Normal 0.3-1.2 [facility] Comment on above: Performed By: #### C BCA, CMP, 3040-3, 67606-7, 75313-8 #### [facility] ([id number]) [address] [place] [address] 97130 Calcium [Mass/Vol] 9.4 mg/dL Normal 8.5-10.[address] [facility] Comment on above: Performed By: #### C BCA, CMP, 3040-3, 60423-0, 92917-0 #### [facility] ([id number]) [address] [place] [address] 29645 Chloride [Moles/Vol] 99 mmol/L Normal 98-109 [facility] Comment on above: Performed By: #### C OLEGARIO OBRIEN, 3040-3, 26804-8, 64878-6 #### [facility] ([id number]) [address] [place] [address] 68422 CO2 [Moles/Vol] 22 mmol/L Normal 22-[address] [facility] Comment on above: Performed By: #### C OLEGARIO OBRIEN, 3040-3, , 44069-1 #### [facility] ([id number]) [address] [place] [address] 13052 Creatinine [Mass/Vol] 0.78 mg/dL Normal 0.40-1.00 [facility] Comment on above: Result Comment: METH OD TRACEABLE TO IDMS STANDARD Performed By: #### C OLEGARIO OBRIEN, 0-3, , 04713-8 #### [facility] ([id number]) [address] [place] [address] 56358 eGFR (CKD-EPI) NON-RACE DEPENDENT >90 Normal >[address] [facility] Comment on above: Result Comment: Reported eGFR is based on the CKD-EPI 2020 equation that does not use a race coefficient. Performed By: #### C OLEGARIO OBRIEN, 3040-3, , 86304-0 #### [facility] ([id number]) [address] [place] [address] 41022 Glucose [Mass/Vol] 117 mg/dL High 65-[address] [facility] Comment on above: Performed By: #### C MICAH, OLEGARIO, 3040-3, 99040-1, 36553-7 #### [facility] ([id number]) [address] [place] [address] 07802 Potassium [Moles/Vol] 3.0 mmol/L Low 3.5-5.0 [facility] Comment on above: Performed By: #### C BCA, CMP, 3040-3, 16376-4, 77950-7 #### [facility] ([id number]) [address] [place] [address] 80921 Protein [Mass/Vol] 8.6 g/dL High 6.0-8.[address] [facility] Comment on above: Performed By: #### C BCA, CMP, 3040-3, 26633-0, 82065-6 #### [facility] ([id number]) [address] [place] [address] 42771 Sodium [Moles/Vol] 135 mmol/L Normal 134-[address] [facility] Comment on above: Performed By: #### C BCA, CMP, 3040-3, 54095-2, 06602-8 #### [facility] ([id number]) [address] [place] [address] 60058 Urea nitrogen [Mass/Vol] 6 mg/dL Normal 5-[address] [facility] Comment on above: Performed By: #### C BCA, CMP, 3040-3, 55958-3, 81131-5 #### [facility] ([id number]) [address] [place] [address] 57987 LIPASEon 08-10-2023 Lipase [Catalytic activity/Vol] 31 U/L Normal 17-[address] [facility] Comment on above: Performed By: #### C BCA, CMP, 3040-3, 38832-4, 55095-7 #### [facility] ([id number]) [address] [place] [address] 36617 PHOSPHORUSon 08-10-2023 Phosphate [Mass/Vol] 3.3 mg/dL Normal 2.4-4.9 [facility] Comment on above: Performed By: #### C BCA, CMP, 3040-3, 17755-5, 22135-5 #### [facility] ([id number]) [address] [place] [address] 92906 POTASSIUMon 08-10-2023 Potassium [Moles/Vol] 3.7 mmol/L Normal 3.5-5.0 [facility] Comment on above: Performed By: #### C BCA, CMP, 3040-3, 10029-2, 28405-9 #### [facility] ([id number]) [address] [place] [address] 79763 Potassium [Moles/Vol] 4.0 mmol/L Normal 3.5-5.0 [facility] Comment on above: Performed By: #### C BCA, CMP, 3040-3, , 73819-8 #### [facility] ([id number]) [address] [place] [address] 63846 CBC AND AUTO DIFFon 08-09-19 ABSOLUTE BASOPHIL 0.1 X10E9/L Normal 0.0-0.[address] [facility] Comment on above: Performed By: #### C BCA, CMP, 3040-3, , 32777-5 #### [facility] ([id number]) [address] [place] [address] 24566 ABSOLUTE NEUTROPHIL 6.0 X10E9/L Normal 1.5-6.6 [facility] Comment on above: Performed By: #### C BCA, CMP, 3040-3, , 99804-0 #### [facility] ([id number]) [address] [place] [address] 13127 Basophils/100 WBC (Bld) 0.6 % Normal [facility] Comment on above: Performed By: #### C BCA, CMP, 3040-3, , 11297-6 #### [facility] ([id number]) [address] [place] [address] 89653 Eosinophils (Bld) [#/Vol] 0.1 10*3/uL Normal 0.0-0.[address] [facility] Comment on above: Performed By: #### C BCA, CMP, 0-3, , 51251-9 #### [facility] ([id number]) [address] [place] [address] 83629 Eosinophils/100 WBC (Bld) 0.6 % Normal [facility] Comment on above: Performed By: #### C BCA, CMP, 0-3, , 11816-9 #### [facility] ([id number]) [address] [place] [address] 41523 Erythrocyte distribution width (RBC) [Ratio] 13.1 % Normal 11.5-15.[address] [facility] Comment on above: Performed By: #### C BCA, CMP, 3, , 17118-2 #### [facility] ([id number]) [address] [place] [address] 24975 Hematocrit (Bld) [Volume fraction] 45.8 % Normal 35-[address] [facility] Comment on above: Performed By: #### C BCA, CMP, 3, , 53599-0 #### [facility] ([id number]) [address] [place] [address] 98000 Hemoglobin (Bld) [Mass/Vol] 15.7 g/dL High 11.7-15.[address] [facility] Comment on above: Performed By: #### C BCA, CMP, 0-3, , 70849-3 #### [facility] ([id number]) [address] [place] [address] 12836 Lymphocytes (Bld) [#/Vol] 1.3 10*3/uL Normal 1.0-3.[address] [facility] Comment on above: Performed By: #### C BCA, CMP, 03, , #### [facility] ([id number]) [address] [place] [address] 85849 Lymphocytes/100 WBC (Bld) 16.3 % Normal [facility] Comment on above: Performed By: #### C BCA, CMP, 3040-3, , 98314-2 #### [facility] ([id number]) [address] [place] [address] 81452 MCH (RBC) [Entitic mass] 29.0 pg Normal 27-[address] [facility] Comment on above: Performed By: #### C BCA, CMP, 0-3, , #### [facility] ([id number]) [address] [place] [address] 29458 MCHC (RBC) [Mass/Vol] 34.3 g/dL Normal 32-36 [facility] Comment on above: Performed By: #### C BCA, CMP, 0-3, , 72722-1 #### [facility] ([id number]) [address] [place] [address] 50702 MCV (RBC) [Entitic vol] 85 fL Normal 80-[address] [facility] Comment on above: Performed By: #### C BCA, CMP, 0-3, , 68494-9 #### [facility] ([id number]) [address] [place] [address] 10307 Monocytes (Bld) [#/Vol] 0.6 10*3/uL Normal 0-0.[address] [facility] Comment on above: Performed By: #### C BCA, CMP, 3040-3, , 99702-6 #### [facility] ([id number]) [address] [place] [address] 84635 Monocytes/100 WBC (Bld) 7.9 % Normal [facility] Comment on above: Performed By: #### C BCA, CMP, 3040-3, 21255-1, 26404-0 #### [facility] ([id number]) [address] [place] [address] 74021 Neutrophils/100 WBC (Bld) 74.6 % Normal [facility] Comment on above: Performed By: #### C BCA, CMP, 3040-3, 35814-2, 79334-4 #### [facility] ([id number]) [address] [place] [address] 82190 Platelet mean volume (Bld) [Entitic vol] 7.7 fL Normal 7-[address] [facility] Comment on above: Performed By: #### C BCA, CMP, 3040-3, 41516-2, 52548-6 #### [facility] ([id number]) [address] [place] [address] 12094 Platelets (Bld) [#/Vol] 276 10*3/uL Normal 150-[address] [facility] Comment on above: Performed By: #### C BCA, CMP, 3040-3, 72476-1, 07081-6 #### [facility] ([id number]) [address] [place] [address] 74009 RBC COUNT 5.41 X10E12/L High 3.80-5.[address] [facility] Comment on above: Performed By: #### Vincenzo BCA, CMP, 3040-3, 05368-0, 76132-0 #### [facility] ([id number]) [address] [place] [address] 70999 WBC (Bld) [#/Vol] 8.0 10*3/uL Normal 4.0-11.[address] [facility] Comment on above: Performed By: #### C BCA, CMP, 3040-3, 60344-4, 69905-5 #### [facility] ([id number]) [address] [place] [address] 63950 COMPREHENSIVE METABOLIC PANE Taran 08-09-2023 Albumin [Mass/Vol] 5.0 g/dL Normal 3.2-5.[address] [facility] Comment on above: Performed By: #### C BCA, CMP, 3040-3, 35666-8, 92238-9 #### [facility] ([id number]) [address] [place] [address] 65436 ALP [Catalytic activity/Vol] 51 U/L Normal 39-[address] [facility] Comment on above: Performed By: #### C BCA, CMP, 3040-3, 88095-3, 19907-3 #### [facility] ([id number]) [address] [place] [address] 82971 ALT [Catalytic activity/Vol] 20 U/L Normal 0-[address] [facility] Comment on above: Performed By: #### C BCA, CMP, 3040-3, 59000-3, 09733-7 #### [facility] ([id number]) [address] [place] [address] 57253 Anion gap [Moles/Vol] 12 mmol/L Normal 5-15 [facility] Comment on above: Performed By: #### C BCA, CMP, 3040-3, 70678-6, 11166-5 #### [facility] ([id number]) [address] [place] [address] 96423 AST [Catalytic activity/Vol] 25 U/L Normal 0-[address] [facility] Comment on above: Performed By: #### C BCA, CMP, 3040-3, 71610-2, 80459-8 #### [facility] ([id number]) [address] [place] [address] 62537 Bilirubin [Mass/Vol] 1.2 mg/dL Normal 0.3-1.2 [facility] Comment on above: Performed By: #### C BCA, CMP, 3040-3, 14771-5, 55676-1 #### [facility] ([id number]) [address] [place] [address] 32895 Calcium [Mass/Vol] 9.0 mg/dL Normal 8.5-10.[address] [facility] Comment on above: Performed By: #### C BCA, CMP, 3040-3, 12939-4, 78229-1 #### [facility] ([id number]) [address] [place] [address] 55132 Chloride [Moles/Vol] 101 mmol/L Normal 98-109 [facility] Comment on above: Performed By: #### C BCA, CMP, 3040-3, , 79942-7 #### [facility] ([id number]) [address] [place] [address] 14206 CO2 [Moles/Vol] 22 mmol/L Normal 22-[address] [facility] Comment on above: Performed By: #### C BCA, CMP, 3040-3, , 22540-8 #### [facility] ([id number]) [address] [place] [address] 36462 Creatinine [Mass/Vol] 0.73 mg/dL Normal 0.40-1.00 [facility] Comment on above: Result Comment: METH OD TRACEABLE TO IDMS STANDARD Performed By: #### C BCA, CMP, 3040-3, , 21595-6 #### [facility] ([id number]) [address] [place] [address] 84192 eGFR (CKD-EPI) NON-RACE DEPENDENT >90 Normal >[address] [facility] Comment on above: Result Comment: Reported eGFR is based on the CKD-EPI 2020 equation that does not use a race coefficient. Performed By: #### C BCA, CMP, 3040-3, 24423-6, 06888-0 #### [facility] ([id number]) [address] [place] [address] 72418 Glucose [Mass/Vol] 105 mg/dL High 65-[address] [facility] Comment on above: Performed By: #### C BCA, CMP, 3040-3, , 98158-8 #### [facility] ([id number]) [address] [place] [address] 65557 Potassium [Moles/Vol] 2.9 mmol/L Low 3.5-5.0 [facility] Comment on above: Performed By: #### C BCA, CMP, 3040-3, 44452-5, 41991-7 #### [facility] ([id number]) [address] [place] [address] 99663 Protein [Mass/Vol] 7.8 g/dL Normal 6.0-8.[address] [facility] Comment on above: Performed By: #### C BCA, CMP, 0-3, , 12955-1 #### [facility] ([id number]) [address] [place] [address] 79278 Sodium [Moles/Vol] 135 mmol/L Normal 134-[address] [facility] Comment on above: Performed By: #### C BCA, CMP, 3040-3, , 56421-0 #### [facility] ([id number]) [address] [place] [address] 95131 Urea nitrogen [Mass/Vol] 10 mg/dL Normal 5-[address] [facility] Comment on above: Performed By: #### C BCA, CMP, 3040-3, , 27993-6 #### [facility] ([id number]) [address] [place] [address] 06705 DRUG SCREEN, URINEon 024 AMPHETAMINE/METHAMP Negative Normal NEG [facility] Comment on above: Result Comment: AMPH /METH screening cut off = 1000 ng/mL Performed By: #### C BCA, CMP, 3040-3, 81447-4, 90823-6 #### [facility] ([id number]) [address] [place] [address] 98970 BARBITURATES Negative Normal NEG [facility] Comment on above: Result Comment: Flaquita iturates screening cut off value = 200 ng/mL Performed By: #### C BCA, CMP, 3040-3, 43319-0, 66696-0 #### [facility] ([id number]) [address] [place] [address] 78047 BENZODIAZEPINES Positive Abnormal NEG [facility] Comment on above: Result Comment: Conf irmation available upon request. Benzodiazepines screening cut off value = 200 ng/mL Performed By: #### C BCA, [facility], 3040-3, 88413-0, 39987-2 #### [facility] ([id number]) [address] [place], [place] [address] CANNABINOIDS Positive Abnormal NEG [facility] Comment on above: Result Comment: Conf irmation available upon request. Cannabinoids/THC screening cut off value = 50 ng/mL Performed By: #### C BCA, [facility], 3040-3, , 99226-9 #### [facility] ([id number]) [address] [place] [address] 37749 COCAINE METABOLITE Negative Normal NEG [facility] Comment on above: Result Comment: Coca ine screening cut off value = 300 ng/mL Performed By: #### C BCA, CMP, 3040-3, 23385-6, 80118-3 #### [facility] ([id number]) [address] [place], [place] [address] ECSTASY Negative Normal NEG [facility] Comment on above: Result Comment: Ecst asy screening cut off value = 500 ng/mL This report is intended for use in clinical monitoring or management of patients. Performed By: #### C BCA, CMP, 3040-3, 04752-2, 99674-6 #### [facility] ([id number]) [address] [place] [address] 79034 METHADONE Negative Normal NEG [facility] Comment on above: Result Comment: Meth adone screening cut off value = 300 ng/mL. Performed By: #### C BCA, CMP, 3040-3, 80248-5, 82675-2 #### [facility] ([id number]) [address] [place] [address] 96544 OPIATES Negative Normal NEG [facility] Comment on above: Result Comment: Opia yvrose screening cut off value = 300 ng/mL NOTE: This test is used for the detection of codeine, hydrocodone (>1000 ng/mL), morphine and hydromorphone (>900 ng/mL) in urine. Performed By: #### C MCIAH, CMP, 3040-3, 80701-1, 20669-7 #### [facility] ([id number]) [address] [place] [address] 65024 OXYCODONE Negative Normal [facility] Comment on above: Result Comment: Oxyc odone screening cut off value = 300 ng/mL NOTE: This test is used for the detection of oxycodone and oxymorphone in urine. Performed By: #### C MICAH, CMP, 3040-3, 83074-4, 67501-3 #### [facility] ([id number]) [address] [place] [address] 40753 PHENCYCLIDINE Negative Normal [facility] Comment on above: Result Comment: Phen cyclidine screening cut off value = 25 ng/mL Performed By: #### C BCA, CMP, 3040-3, 48770-5, 11553-8 #### [facility] ([id number]) [address] [place] [address] 28933 HCG ( test) Ql (U)o n 08-09-2023 Beta HCG ( test) Ql (U) Negative Normal [facility] Comment on above: Performed By: #### C BCA, CMP, 3040-3, 58540-8, 22937-9 #### [facility] ([id number]) [address] [place] [address] 84287 LIPASEon 08-09-2023 Lipase [Catalytic activity/Vol] 40 U/L Normal 17-[address] [facility] Comment on above: Performed By: #### C OLEGARIO OBRIEN, 3040-3, , 85469-4 #### [facility] ([id number]) [address] [place] [address] 07910 Lactate (P andrew) [Moles/Vol]o n 08-09-2023 LACTATE W/REFLEX 1.3 mmol/L Normal 0.4-2.0 [facility] Comment on above: Result Comment: Result did not trigger repeat Lactate, re-order if needed. Performed By: #### C OLEGARIO OBRIEN, 0-3, , 78951-8 #### [facility] ([id number]) [address] [place] [address] 08045 MAGNESIUMon 08-09-2023 Magnesium [Mass/Vol] 2.3 mg/dL Normal 1.8-2.6 [facility] Comment on above: Performed By: #### Vincenzo OBRIEN CMP, 3040-3, , 86753-3 #### [facility] ([id number]) [address] [place] [address] 45883 PHOSPHORUSon 08-09-2023 Phosphate [Mass/Vol] 2.7 mg/dL Normal 2.4-4.9 [facility] Comment on above: Performed By: #### C OLEGARIO OBRIEN, 3040-3, , 38953-2 #### [facility] ([id number]) [address] [place] [address] 86462 POTASSIUMon 08-09-2023 Potassium [Moles/Vol] 3.7 mmol/L Normal 3.5-5.0 [facility] Comment on above: Performed By: #### C BCA, CMP, 3040-3, 02960-1, 83374-8 #### [facility] ([id number]) [address] [place] [address] 86425 URN MACROSCOPIC NURon 2023 BILIRUBIN DIONICIO Negative Normal [facility] Comment on above: Performed By: #### C BCA, CMP, 3040-3, 97765-1, 36273-8 #### [facility] ([id number]) [address] [place] [address] 36391 BLOOD/HGB DIONICIO Trace Abnormal [facility] Comment on above: Performed By: #### C BCA, CMP, 3040-3, 04518-4, 81644-9 #### [facility] ([id number]) [address] [place] [address] 21899 GLUCOSE DIONICIO Negative Normal [facility] Comment on above: Performed By: #### C BCA, CMP, 3040-3, 70343-1, 56587-2 #### [facility] ([id number]) [address] [place] [address] [place] [address] KETONES DIONICIO 15 mg/dL Abnormal NEG [facility] Comment on above: Performed By: #### C BCA, CMP, 3040-3, 92240-4, 27874-9 #### [facility] ([id number]) [address] [place] [address] [place] [address] LEUKOCYTE ESTERASE DIONICIO Negative Normal NEG [facility] Comment on above: Performed By: #### C BCA, CMP, 3040-3, 05736-3, 48710-4 #### [facility] ([id number]) [address] [place] [address] 98269 NITRITE DIONCIIO Negative Normal NEG [facility] Comment on above: Performed By: #### C BCA, CMP, 3040-3, 74296-8, 67119-5 #### [facility] ([id number]) [address] [place] [address] 59636 PH DIONICIO 7.5 Normal 5.0-8.[address] [facility] Comment on above: Performed By: #### C BCA, CMP, 3040-3, 51826-4, 53693-0 #### [facility] ([id number]) [address] [place] [address] 99709 PROTEIN DIONICIO Negative Normal NEG [facility] Comment on above: Performed By: #### C BCA, CMP, 3040-3, , 28849-6 #### [facility] ([id number]) [address] [place] [address] 07657 SPECIFIC GRAVITY DIONICIO 1.020 Normal 1.003-1.035 [facility] Comment on above: Performed By: #### C BCA, CMP, 3040-3, , 46506-2 #### [facility] ([id number]) [address] [place] [address] 93632 UROBILINOGEN DIONICIO 0.2 eu/dL Normal <1.1 [facility] Comment on above: Performed By: #### C BCA, CMP, 3040-3, , 07825-3 #### [facility] ([id number]) [address] [place] [address] 67191 CBC AND AUTO DIFFon 08-07-19 24 ABSOLUTE BASOPHIL 0.0 X10E9/L Normal 0.0-0.[address] [facility] Comment on above: Performed By: #### C BCA, CMP, 3040-3, , 38869-1 #### [facility] ([id number]) [address] [place] [address] 94738 ABSOLUTE NEUTROPHIL 7.9 X10E9/L High 1.5-6.6 [facility] Comment on above: Performed By: #### C BCA, CMP, 3040-3, 95022-6, 99953-3 #### [facility] ([id number]) [address] [place] [address] 98741 Basophils/100 WBC (Bld) 0.4 % Normal [facility] Comment on above: Performed By: #### C BCA, CMP, 3040-3, 65562-3, 47835-0 #### [facility] ([id number]) [address] [place] [address] 74271 Eosinophils (Bld) [#/Vol] 0.0 10*3/uL Normal 0.0-0.[address] [facility] Comment on above: Performed By: #### C MICAH, CMP, 3040-3, , 64955-3 #### [facility] ([id number]) [address] [place] [address] 34359 Eosinophils/100 WBC (Bld) 0.3 % Normal [facility] Comment on above: Performed By: #### C MICAH, CMP, 0-3, , 82924-2 #### [facility] ([id number]) [address] [place] [address] 83483 Erythrocyte distribution width (RBC) [Ratio] 13.1 % Normal 11.5-15.[address] [facility] Comment on above: Performed By: #### C BCA, CMP, 3040-3, , 03729-9 #### [facility] ([id number]) [address] [place] [address] 71538 Hematocrit (Bld) [Volume fraction] 45.6 % Normal 35-[address] [facility] Comment on above: Performed By: #### C BCA, CMP, 3040-3, 25793-7, 77615-5 #### [facility] ([id number]) [address] [place] [address] 31536 Hemoglobin (Bld) [Mass/Vol] 15.6 g/dL High 11.7-15.[address] [facility] Comment on above: Performed By: #### C BCA, CMP, 3040-3, , 81212-7 #### [facility] ([id number]) [address] [place] [address] 41535 Lymphocytes (Bld) [#/Vol] 1.6 10*3/uL Normal 1.0-3.[address] [facility] Comment on above: Performed By: #### C BCA, CMP, 3040-3, , 96583-6 #### [facility] ([id number]) [address] [place] [address] 81767 Lymphocytes/100 WBC (Bld) 15.3 % Normal [facility] Comment on above: Performed By: #### C BCA, CMP, 0-3, , 14060-1 #### [facility] ([id number]) [address] [place] [address] 41974 MCH (RBC) [Entitic mass] 28.7 pg Normal 27-[address] [facility] Comment on above: Performed By: #### C BCA, CMP, 3040-3, , 73200-7 #### [facility] ([id number]) [address] [place] [address] 29790 MCHC (RBC) [Mass/Vol] 34.2 g/dL Normal 32-36 [facility] Comment on above: Performed By: #### C BCA, CMP, 3040-3, , 14674-3 #### [facility] ([id number]) [address] [place] [address] 12562 MCV (RBC) [Entitic vol] 84 fL Normal 80-[address] [facility] Comment on above: Performed By: #### Vincenzo BCA, CMP, 3040-3, , 27846-9 #### [facility] ([id number]) [address] [place] [address] 39259 Monocytes (Bld) [#/Vol] 0.7 10*3/uL Normal 0-0.[address] [facility] Comment on above: Performed By: #### C BCA, CMP, 3040-3, 03452-7, 42530-6 #### [facility] ([id number]) [address] [place] [address] 29068 Monocytes/100 WBC (Bld) 6.7 % Normal [facility] Comment on above: Performed By: #### C BCA, CMP, 3040-3, 32165-5, 21070-3 #### [facility] ([id number]) [address] [place] [address] 10535 Neutrophils/100 WBC (Bld) 77.3 % Normal [facility] Comment on above: Performed By: #### C BCA, CMP, 3040-3, 28258-0, 04890-8 #### [facility] ([id number]) [address] [place] [address] 18598 Platelet mean volume (Bld) [Entitic vol] 7.7 fL Normal 7-[address] [facility] Comment on above: Performed By: #### C BCA, CMP, 3040-3, 11137-6, 61516-3 #### [facility] ([id number]) [address] [place] [address] 62401 Platelets (Bld) [#/Vol] 331 10*3/uL Normal 150-[address] [facility] Comment on above: Performed By: #### C BCA, CMP, 3040-3, 77419-4, 96686-3 #### [facility] ([id number]) [address] [place] [address] 88407 RBC COUNT 5.43 X10E12/L High 3.80-5.[address] [facility] Comment on above: Performed By: #### C BCA, CMP, 3040-3, 17483-1, 06749-8 #### [facility] ([id number]) [address] [place] [address] 03337 WBC (Bld) [#/Vol] 10.2 10*3/uL Normal 4.0-11.0 [facility] Comment on above: Performed By: #### C BCA, CMP, 3040-3, 09024-5, 21894-1 #### [facility] ([id number]) [address] [place] [address] 04289 COMPREHENSIVE METABOLIC PANE Taran 08-07-2023 Albumin [Mass/Vol] 4.8 g/dL Normal 3.2-5.[address] [facility] Comment on above: Performed By: #### C BCA, CMP, 3040-3, 50011-6, 44965-7 #### [facility] ([id number]) [address] [place] [address] 68285 ALP [Catalytic activity/Vol] 51 U/L Normal 39-[address] [facility] Comment on above: Performed By: #### C BCA, CMP, 3040-3, 36862-1, 80738-3 #### [facility] ([id number]) [address] [place] [address] 08500 ALT [Catalytic activity/Vol] 21 U/L Normal 0-[address] [facility] Comment on above: Performed By: #### C BCA, CMP, 3040-3, 99837-9, 27390-6 #### [facility] ([id number]) [address] [place] [address] 06986 Anion gap [Moles/Vol] 13 mmol/L Normal 5-15 [facility] Comment on above: Performed By: #### C BCA, CMP, 3040-3, 99220-3, 05734-5 #### [facility] ([id number]) [address] [place] [address] AST [Catalytic activity/Vol] 21 U/L Normal 0-[address] [facility] Comment on above: Performed By: #### C BCA, CMP, 3040-3, , 56807-5 #### [facility] ([id number]) [address] [place] [address] 39492 Bilirubin [Mass/Vol] 1.2 mg/dL Normal 0.3-1.2 [facility] Comment on above: Performed By: #### C BCA, CMP, 3040-3, , 46279-2 #### [facility] ([id number]) [address] [place] [address] 99310 Calcium [Mass/Vol] 9.2 mg/dL Normal 8.5-10.[address] [facility] Comment on above: Performed By: #### C BCA, CMP, 3040-3, , 66329-8 #### [facility] ([id number]) [address] [place] [address] 50019 Chloride [Moles/Vol] 100 mmol/L Normal 98-109 [facility] Comment on above: Performed By: #### C BCA, CMP, 3040-3, , 46852-8 #### [facility] ([id number]) [address] [place] [address] 89361 CO2 [Moles/Vol] 22 mmol/L Normal 22-[address] [facility] Comment on above: Performed By: #### C BCA, CMP, 3040-3, , 04654-0 #### [facility] ([id number]) [address] [place] [address] 20994 Creatinine [Mass/Vol] 0.68 mg/dL Normal 0.40-1.00 [facility] Comment on above: Result Comment: METH OD TRACEABLE TO IDMS STANDARD Performed By: #### C BCA, CMP, 3040-3, 26818-6, 86870-1 #### [facility] ([id number]) [address] [place] [address] 96747 eGFR (CKD-EPI) NON-RACE DEPENDENT >90 Normal >[address] [facility] Comment on above: Result Comment: Reported eGFR is based on the CKD-EPI 2020 equation that does not use a race coefficient. Performed By: #### C BCA, CMP, 3040-3, 83475-2, 66572-9 #### [facility] ([id number]) [address] [place] [address] 29874 Glucose [Mass/Vol] 111 mg/dL High 65-[address] [facility] Comment on above: Performed By: #### C BCA, CMP, 3040-3, , 58398-1 #### [facility] ([id number]) [address] [place] [address] 21444 Potassium [Moles/Vol] 3.1 mmol/L Low 3.5-5.0 [facility] Comment on above: Performed By: #### C BCA, CMP, 0-3, , 12400-4 #### [facility] ([id number]) [address] [place] [address] 82027 Protein [Mass/Vol] 8.2 g/dL High 6.0-8.[address] [facility] Comment on above: Performed By: #### C BCA, CMP, 3040-3, 53545-1, 05642-4 #### [facility] ([id number]) [address] [place] [address] 72533 Sodium [Moles/Vol] 135 mmol/L Normal 134-[address] [facility] Comment on above: Performed By: #### C BCA, CMP, 3040-3, , 71635-1 #### [facility] ([id number]) [address] [place] [address] 26037 Urea nitrogen [Mass/Vol] 15 mg/dL Normal 5-[address] [facility] Comment on above: Performed By: #### C MICAH, CMP, 3040-3, 01072-8, 70586-3 #### [facility] ([id number]) [address] [place] [address] 09432 LIPASEon 08-07-2023 Lipase [Catalytic activity/Vol] 25 U/L Normal 17-[address] [facility] Comment on above: Performed By: #### C MICAH, CMP, 3040-3, , 40190-7 #### [facility] ([id number]) [address] [place] [address] 25809 Lactate (P andrew) [Moles/Vol]o n 08-07-2023 LACTATE W/REFLEX 1.4 mmol/L Normal 0.4-2.0 [facility] Comment on above: Result Comment: Result did not trigger repeat Lactate, re-order if needed. Performed By: #### C MICAH, CMP, 3040-3, , 34178-2 #### [facility] ([id number]) [address] [place] [address] 63550 MAGNESIUMon 08-07-2023 Magnesium [Mass/Vol] 2.2 mg/dL Normal 1.8-2.6 [facility] Comment on above: Performed By: #### C MICAH, CMP, 3040-3, , 98291-3 #### [facility] ([id number]) [address] [place] [address] 45683 Outside Recordson 08-07-2023 Outside Records [id number]# 1.00OTGTIFF Normal [facility] URN MACROSCOPIC NURon 2023 BILIRUBIN DIONICIO Negative Normal NEG [facility] Comment on above: Performed By: #### C MICAH, CMP, 3040-3, , 67877-9 #### [facility] ([id number]) [address] [place] [address] [place] [address] BLOOD/HGB DIONICIO Large Abnormal NEG [facility] Comment on above: Performed By: #### C BCA, CMP, 3040-3, 22441-0, 69735-7 #### [facility] ([id number]) [address] [place] [address] 11588 GLUCOSE DIONICIO Negative Normal NEG [facility] Comment on above: Performed By: #### C BCA, CMP, 3040-3, 65607-1, 96623-8 #### [facility] ([id number]) [address] [place] [address] 72771 KETONES DIONICIO 80 mg/dL Abnormal NEG [facility] Comment on above: Performed By: #### C BCA, CMP, 3040-3, 82610-2, 03830-0 #### [facility] ([id number]) [address] [place] [address] [place] [address] LEUKOCYTE ESTERASE DIONICIO Negative Normal NEG [facility] Comment on above: Performed By: #### C BCA, CMP, 3040-3, 70944-1, 42931-9 #### [facility] ([id number]) [address] [place] [address] 15703 NITRITE DIONICIO Negative Normal NEG [facility] Comment on above: Performed By: #### C BCA, CMP, 3040-3, 62769-1, 55731-9 #### [facility] ([id number]) [address] [place] [address] 45202 PH DIONICIO 6.5 Normal 5.0-8.[address] [facility] Comment on above: Performed By: #### C BCA, CMP, 3040-3, 82794-6, 26100-0 #### [facility] ([id number]) [address] [place] [address]61 PROTEIN DIONICIO Trace Abnormal NEG [facility] Comment on above: Performed By: #### C BCA, CMP, 3040-3, 79273-6, 53537-3 #### [facility] ([id number]) [address] [place] [address] SPECIFIC GRAVITY DIONICIO 1.025 Normal 1.003-1.035 [facility] Comment on above: Performed By: #### C BCA, CMP, 3040-3, 49864-9, 39617-9 #### [facility] ([id number]) [address] [place] [address] UROBILINOGEN DIONICIO 1.0 eu/dL Normal <1.1 [facility] Comment on above: Performed By: #### C BCA, CMP, 3040-3, 34689-4, 83375-1 #### [facility] ([id number]) [address] [place] [address] US PELVIC FOR OVARIAN TORSIO N W/TV/DUPLEXon 08-07-2023 US PELVIC FOR OVARIAN TORSION W/TV/DUPLEX US PELVIC FOR OVARIAN TORSION W/TV/DUPLEX CLINICAL INFORMATION: pelvic/abdominal pain TECHNIQUE: Real-time transabdominal and transvaginal sonographic evaluation of the pelvis was performed with sheldon scale and color flow imaging. Transabdominal imaging performed to evaluate for extra adnexal pelvic pathology. Transvaginal imaging performed for better delineation of the adnexal and endometrial contents. Real time sheldon scale, color flow imaging and duplex spectral Doppler waveform analysis evaluation was performed of the major arterial inflow and venous outflow structures of the ovaries with arterial and venous spectral waveforms obtained and reviewed in view of the clinical history of pelvic/abdominal pain . Duplex spectral Doppler document arterial and venous spectral waveforms documented within the major arterial inflow and venous outflow of both ovaries. Arterial and venous Doppler duplex spectral waveforms were evaluated. COMPARISON: No relevant prior studies available. FINDINGS: Unremarkable uterus measures 6.6 x 3.3 x 3.7 cm. Endometrium is 3.8 mm in thickness without internal color flow vascularity. Ovaries are normal size with small follicles. Right ovary is 2.5 x 1.9 x 2.0 cm. Left ovary is 3.2 x 1.3 x 2.2 cm. No cul-de-sac fluid seen. The arterial and venous waveforms in both ovaries are within normal limits. IMPRESSION: * Sonographically unremarkable uterus and ovaries with no sonographic evidence of ovarian torsion. Finalized by Singh Barger MD on 08/07/2023 9:44 AM Normal [facility] XR ABDOMEN AP 1 VWon 024 XR ABDOMEN AP 1 VW XR ABDOMEN AP 1 VW XR ABDOMEN AP 1 VW: 08/07/2023 9:01 AM Clinical: Abdominal pain and vomiting for 4 days. EXAM: ABDOMEN RADIOGRAPH Views: Supine Comparison: None Findings: Low stool burden. No gaseous bowel dilatation or abnormal calcifications. Unremarkable visualized bony structures. Impression: * Nonobstructive bowel gas pattern. Finalized by Singh Barger MD on 08/07/2023 9:16 AM Normal [facility] CBC AND AUTO DIFFon 08-06-19 ABSOLUTE BASOPHIL 0.0 X10E9/L Normal 0.0-0.[address] [facility] Comment on above: Performed By: #### C MICAH, CMP #### [facility] ([id number]) [address] [place] [address] 30466 ABSOLUTE NEUTROPHIL 11.8 X10E9/L High 1.5-6.6 [facility] Comment on above: Performed By: #### C BCA, CMP #### [facility] ([id number]) [address] [place] [address] 39118 Basophils/100 WBC (Bld) 0.2 % Normal [facility] Comment on above: Performed By: #### C BCA, CMP #### [facility] ([id number]) [address] [place] [address] 35410 Eosinophils (Bld) [#/Vol] 0.0 10*3/uL Normal 0.0-0.[address] [facility] Comment on above: Performed By: #### C BCA, CMP #### [facility] ([id number]) [address] [place] [address] 75007 Eosinophils/100 WBC (Bld) 0.1 % Normal [facility] Comment on above: Performed By: #### C MICAH, CMP #### [facility] ([id number]) [address] [place] [address] 90130 Erythrocyte distribution width (RBC) [Ratio] 13.3 % Normal 11.5-15.[address] [facility] Comment on above: Performed By: #### C MICAH, CMP #### [facility] ([id number]) [address] [place] [address] 01787 Hematocrit (Bld) [Volume fraction] 46.2 % Normal 35-[address] [facility] Comment on above: Performed By: #### C MICAH, CMP #### [facility] ([id number]) [address] [place] [address] 01241 Hemoglobin (Bld) [Mass/Vol] 15.8 g/dL High 11.7-15.[address] [facility] Comment on above: Performed By: #### C MICAH, CMP #### [facility] ([id number]) [address] [place] [address] 84517 Lymphocytes (Bld) [#/Vol] 1.0 10*3/uL Normal 1.0-3.[address] [facility] Comment on above: Performed By: #### C MICAH, CMP #### [facility] ([id number]) [address] [place] [address] 66212 Lymphocytes/100 WBC (Bld) 7.4 % Normal [facility] Comment on above: Performed By: #### C BCA, CMP #### [facility] ([id number]) [address] [place] [address] 35237 MCH (RBC) [Entitic mass] 28.5 pg Normal 27-[address] [facility] Comment on above: Performed By: #### C BCA, CMP #### [facility] ([id number]) [address] [place] [address] [place] [address] MCHC (RBC) [Mass/Vol] 34.3 g/dL Normal 32-36 [facility] Comment on above: Performed By: #### C MICAH, CMP #### [facility] ([id number]) [address] [place] [address] 26307 MCV (RBC) [Entitic vol] 83 fL Normal 80-[address] [facility] Comment on above: Performed By: #### C MICAH, CMP #### [facility] ([id number]) [address] [place] [address] 26563 Monocytes (Bld) [#/Vol] 0.6 10*3/uL Normal 0-0.[address] [facility] Comment on above: Performed By: #### C MICAH, CMP #### [facility] ([id number]) [address] [place] [address] 91329 Monocytes/100 WBC (Bld) 4.8 % Normal [facility] Comment on above: Performed By: #### C MICAH, CMP #### [facility] ([id number]) [address] [place] [address] 71830 Neutrophils/100 WBC (Bld) 87.5 % Normal [facility] Comment on above: Performed By: #### C MICAH, CMP #### [facility] ([id number]) [address] [place] [address] [place] [address] Platelet mean volume (Bld) [Entitic vol] 7.8 fL Normal 7-[address] [facility] Comment on above: Performed By: #### C MICAH, CMP #### [facility] ([id number]) [address] [place] [address] 97059 Platelets (Bld) [#/Vol] 358 10*3/uL Normal 150-[address] [facility] Comment on above: Performed By: #### C BCA, CMP #### [facility] ([id number]) [address] [place] [address] 37125 RBC COUNT 5.56 X10E12/L High 3.80-5.[address] [facility] Comment on above: Performed By: #### C BCA, CMP #### [facility] ([id number]) [address] [place] [address] 66670 WBC (Bld) [#/Vol] 13.5 10*3/uL High 4.0-11.0 [facility] Comment on above: Performed By: #### C BCA, CMP #### [facility] ([id number]) [address] [place] [address] 97238 COMPREHENSIVE METABOLIC PANE Taran 08-06-2023 Albumin [Mass/Vol] 5.2 g/dL Normal 3.2-5.[address] [facility] Comment on above: Performed By: #### C BCA, CMP, 3040-3, 85781-4, 06407-6 #### [facility] ([id number]) [address] [place] [address] 00137 ALP [Catalytic activity/Vol] 57 U/L Normal 39-[address] [facility] Comment on above: Performed By: #### C BCA, CMP, 3040-3, 56391-0, 69409-0 #### [facility] ([id number]) [address] [place] [address] 26591 ALT [Catalytic activity/Vol] 22 U/L Normal 0-[address] [facility] Comment on above: Performed By: #### C BCA, CMP, 3040-3, 20346-7, 83316-4 #### [facility] ([id number]) [address] [place] [address] 75355 Anion gap [Moles/Vol] 12 mmol/L Normal 5-15 [facility] Comment on above: Performed By: #### C BCA, CMP, 3040-3, , 60724-8 #### [facility] ([id number]) [address] [place] [address] 57275 AST [Catalytic activity/Vol] 27 U/L Normal 0-[address] [facility] Comment on above: Performed By: #### C BCA, CMP, 3040-3, , 66514-6 #### [facility] ([id number]) [address] [place] [address] 48368 Bilirubin [Mass/Vol] 1.2 mg/dL Normal 0.3-1.2 [facility] Comment on above: Performed By: #### C BCA, CMP, 3040-3, , 06993-1 #### [facility] ([id number]) [address] [place] [address] 25890 Calcium [Mass/Vol] 9.6 mg/dL Normal 8.5-10.[address] [facility] Comment on above: Performed By: #### C BCA, CMP, 0-3, , 82743-6 #### [facility] ([id number]) [address] [place] [address] 40724 Chloride [Moles/Vol] 102 mmol/L Normal 98-109 [facility] Comment on above: Performed By: #### C BCA, CMP, 3040-3, , 79708-2 #### [facility] ([id number]) [address] [place] [address] 47311 CO2 [Moles/Vol] 23 mmol/L Normal 22-[address] [facility] Comment on above: Performed By: #### C BCA, CMP, 3040-3, , 77872-6 #### [facility] ([id number]) [address] [place] [address] 30863 Creatinine [Mass/Vol] 0.73 mg/dL Normal 0.40-1.00 [facility] Comment on above: Result Comment: METH OD TRACEABLE TO IDMS STANDARD Performed By: #### C OLEGARIO OBRIEN, 3040-3, , 33199-8 #### [facility] ([id number]) [address] [place] [address] 63607 eGFR (CKD-EPI) NON-RACE DEPENDENT >90 Normal >[address] [facility] Comment on above: Result Comment: Reported eGFR is based on the CKD-EPI 2020 equation that does not use a race coefficient. Performed By: #### C OLEGARIO OBRIEN, 0-3, , 02834-0 #### [facility] ([id number]) [address] [place] [address] 81001 Glucose [Mass/Vol] 123 mg/dL High 65-[address] [facility] Comment on above: Performed By: #### C OLEGARIO OBRIEN, 0-3, , 82114-8 #### [facility] ([id number]) [address] [place] [address] 33963 Potassium [Moles/Vol] 3.0 mmol/L Low 3.5-5.0 [facility] Comment on above: Performed By: #### C OLEGARIO OBRIEN, 0-3, , 47619-7 #### [facility] ([id number]) [address] [place] [address] 61908 Protein [Mass/Vol] 9.0 g/dL High 6.0-8.[address] [facility] Comment on above: Performed By: #### C OLEGARIO OBRIEN, 3040-3, , 53268-5 #### [facility] ([id number]) [address] [place] [address] 37907 Sodium [Moles/Vol] 137 mmol/L Normal 134-[address] [facility] Comment on above: Performed By: #### C OLEGARIO OBRIEN, 3040-3, 81002-4, 39177-8 #### [facility] ([id number]) [address] [place] [address] 54480 Urea nitrogen [Mass/Vol] 17 mg/dL Normal 5-[address] [facility] Comment on above: Performed By: #### C BCA, CMP, 3040-3, 20191-4, 41911-9 #### [facility] ([id number]) [address] [place] [address] 89779 Outside Recordson 08-06-2023 Outside Records [id number]# 1.00OTGTIFF [facility] Outside Recordson 08-04-2023 Outside Records [id number][facility]O [facility]FFon 08-03-19 24 ABSOLUTE BASOPHIL 0.0 X10E9/L Normal 0.0-0.[address] [facility] Comment on above: Performed By: #### C BCA, CMP, 3040-3, , 53100-9 #### [facility] ([id number]) [address] [place] [address] 89350 ABSOLUTE NEUTROPHIL 12.5 X10E9/L High 1.5-6.6 [facility] Comment on above: Performed By: #### C BCA, CMP, 3040-3, , 63548-4 #### [facility] ([id number]) [address] [place] [address] 87863 Basophils/100 WBC (Bld) 0.2 % Normal [facility] Comment on above: Performed By: #### C BCA, CMP, 3040-3, 70915-4, 95567-6 #### [facility] ([id number]) [address] [place] [address] 65031 Eosinophils (Bld) [#/Vol] 0.0 10*3/uL Normal 0.0-0.[address] [facility] Comment on above: Performed By: #### C MICAH, CMP, 0-3, , 56516-8 #### [facility] ([id number]) [address] [place] [address] 50496 Eosinophils/100 WBC (Bld) 0.1 % Normal [facility] Comment on above: Performed By: #### C MICAH, CMP, 0-3, , 88488-6 #### [facility] ([id number]) [address] [place] [address] 22916 Erythrocyte distribution width (RBC) [Ratio] 13.2 % Normal 11.5-15.[address] [facility] Comment on above: Performed By: #### C MICAH, CMP, 3, , 38790-7 #### [facility] ([id number]) [address] [place] [address] 07574 Hematocrit (Bld) [Volume fraction] 43.9 % Normal 35-[address] [facility] Comment on above: Performed By: #### C MICAH, CMP, 03, , 36889-6 #### [facility] ([id number]) [address] [place] [address] 04590 Hemoglobin (Bld) [Mass/Vol] 14.9 g/dL Normal 11.7-15.[address] [facility] Comment on above: Performed By: #### C MICAH, CMP, 0-3, , 12869-8 #### [facility] ([id number]) [address] [place] [address] 70765 Lymphocytes (Bld) [#/Vol] 0.5 10*3/uL Low 1.0-3.[address] [facility] Comment on above: Performed By: #### C MICAH, CMP, 0-3, , 11462-4 #### [facility] ([id number]) [address] [place] [address] 03386 Lymphocytes/100 WBC (Bld) 3.7 % Normal [facility] Comment on above: Performed By: #### C BCA, CMP, 0-3, , 22687-5 #### [facility] ([id number]) [address] [place] [address] 61082 MCH (RBC) [Entitic mass] 28.6 pg Normal 27-[address] [facility] Comment on above: Performed By: #### C BCA, CMP, 3, , 84141-2 #### [facility] ([id number]) [address] [place] [address] 65502 MCHC (RBC) [Mass/Vol] 33.9 g/dL Normal 32-36 [facility] Comment on above: Performed By: #### C BCA, CMP, 3, , 44097-3 #### [facility] ([id number]) [address] [place] [address] 71739 MCV (RBC) [Entitic vol] 84 fL Normal 80-[address] [facility] Comment on above: Performed By: #### C BCA, CMP, 3, , 78484-6 #### [facility] ([id number]) [address] [place] [address] 96400 Monocytes (Bld) [#/Vol] 0.2 10*3/uL Normal 0-0.[address] [facility] Comment on above: Performed By: #### C BCA, CMP, 0-3, , 93994-5 #### [facility] ([id number]) [address] [place] [address] 77042 Monocytes/100 WBC (Bld) 1.9 % Normal [facility] Comment on above: Performed By: #### C BCA, CMP, 3040-3, 66878-1, 81180-6 #### [facility] ([id number]) [address] [place] [address] 52168 Neutrophils/100 WBC (Bld) 94.1 % Normal [facility] Comment on above: Performed By: #### C BCA, CMP, 3040-3, 36149-6, 12168-3 #### [facility] ([id number]) [address] [place] [address] 09969 Platelet mean volume (Bld) [Entitic vol] 8.1 fL Normal 7-[address] [facility] Comment on above: Performed By: #### C BCA, CMP, 3040-3, 68865-6, 27880-6 #### [facility] ([id number]) [address] [place] [address] 26886 Platelets (Bld) [#/Vol] 250 10*3/uL Normal 150-[address] [facility] Comment on above: Performed By: #### C BCA, CMP, 3040-3, 66562-8, 29795-2 #### [facility] ([id number]) [address] [place] [address] 13290 RBC COUNT 5.22 X10E12/L High 3.80-5.[address] [facility] Comment on above: Performed By: #### Vincenzo BCA, CMP, 3040-3, 05247-3, 89433-3 #### [facility] ([id number]) [address] [place] [address] 93220 WBC (Bld) [#/Vol] 13.3 10*3/uL High 4.0-11.0 [facility] Comment on above: Performed By: #### C BCA, CMP, 3040-3, 20796-0, 25132-8 #### [facility] ([id number]) [address] [place] [address] 50600 COMPREHENSIVE METABOLIC PANE Taran 08-03-2023 Albumin [Mass/Vol] 5.1 g/dL Normal 3.2-5.[address] [facility] Comment on above: Performed By: #### C BCA, CMP, 3040-3, 03271-4, 75885-1 #### [facility] ([id number]) [address] [place] [address] 86996 ALP [Catalytic activity/Vol] 51 U/L Normal 39-[address] [facility] Comment on above: Performed By: #### C BCA, CMP, 3040-3, 64871-9, 48133-9 #### [facility] ([id number]) [address] [place] [address] 37511 ALT [Catalytic activity/Vol] 16 U/L Normal 0-[address] [facility] Comment on above: Performed By: #### C BCA, CMP, 3040-3, 15275-8, 37311-3 #### [facility] ([id number]) [address] [place] [address] 25407 Anion gap [Moles/Vol] 13 mmol/L Normal 5-15 [facility] Comment on above: Performed By: #### C BCA, CMP, 3040-3, 34786-5, 77486-1 #### [facility] ([id number]) [address] [place] [address] 70789 AST [Catalytic activity/Vol] 27 U/L Normal 0-[address] [facility] Comment on above: Performed By: #### C BCA, CMP, 3040-3, 95999-1, 16808-6 #### [facility] ([id number]) [address] [place] [address] 69688 Bilirubin [Mass/Vol] 0.8 mg/dL Normal 0.3-1.2 [facility] Comment on above: Performed By: #### C BCA, CMP, 3040-3, 40461-9, 22545-5 #### [facility] ([id number]) [address] [place] [address] 23277 Calcium [Mass/Vol] 9.5 mg/dL Normal 8.5-10.[address] [facility] Comment on above: Performed By: #### C BCA, CMP, 3040-3, 60562-1, 54846-3 #### [facility] ([id number]) [address] [place] [address] 39045 Chloride [Moles/Vol] 105 mmol/L Normal 98-109 [facility] Comment on above: Performed By: #### C BCA, CMP, 3040-3, 32399-9, 16131-3 #### [facility] ([id number]) [address] [place] [address] 88341 CO2 [Moles/Vol] 18 mmol/L Low 22-[address] [facility] Comment on above: Performed By: #### C BCA, CMP, 3040-3, 20263-4, 93918-5 #### [facility] ([id number]) [address] [place] [address] 97641 Creatinine [Mass/Vol] 0.71 mg/dL Normal 0.40-1.00 [facility] Comment on above: Result Comment: METH OD TRACEABLE TO IDMS STANDARD Performed By: #### C BCA, CMP, 3040-3, 19417-7, 52902-1 #### [facility] ([id number]) [address] [place] [address] 67125 eGFR (CKD-EPI) NON-RACE DEPENDENT >90 Normal >[address] [facility] Comment on above: Result Comment: Reported eGFR is based on the CKD-EPI 2020 equation that does not use a race coefficient. Performed By: #### C BCA, CMP, 3040-3, 45626-3, 20290-1 #### [facility] ([id number]) [address] [place] [address] 90133 Glucose [Mass/Vol] 168 mg/dL High 65-[address] [facility] Comment on above: Performed By: #### C BCA, CMP, 3040-3, 11543-7, 38637-5 #### [facility] ([id number]) [address] [place] [address] 83955 Potassium [Moles/Vol] 3.4 mmol/L Low 3.5-5.0 [facility] Comment on above: Performed By: #### C BCA, CMP, 3040-3, 80711-5, 65587-9 #### [facility] ([id number]) [address] [place] [address] 57063 Protein [Mass/Vol] 8.3 g/dL High 6.0-8.[address] [facility] Comment on above: Performed By: #### C BCA, CMP, 3040-3, 74016-7, 28706-7 #### [facility] ([id number]) [address] [place] [address] 69976 Sodium [Moles/Vol] 136 mmol/L Normal 134-[address] [facility] Comment on above: Performed By: #### C BCA, CMP, 3040-3, 20247-4, 17979-1 #### [facility] ([id number]) [address] [place] [address] 65229 Urea nitrogen [Mass/Vol] 14 mg/dL Normal 5-[address] [facility] Comment on above: Performed By: #### C BCA, CMP, 3040-3, 08370-0, 28713-7 #### [facility] ([id number]) [address] [place] [address] ABDOMEN AND PELVIS W CONT on 08-03-2023 CT ABDOMEN AND PELVIS W CONT CT ABDOMEN AND PELVIS W CONT CT ABDOMEN AND PELVIS WITH CONTRAST CLINICAL INFORMATION: Acute nonlocalized abdominal pain TECHNIQUE: Multidetector spiral CT scan of the abdomen and pelvis was performed following the uneventful administration of nonionic intravenous contrast. Coronal and sagittal reformatted images were obtained and reviewed. Automated exposure control was utilized. Following the intravenous injection of 100 cc of Omnipaque 300, a CT of the abdomen and pelvis and sagittal and coronal reformats obtained. All CT scans at this facility use dose modulation, iterative reconstruction, and/or weight based dosing when appropriate to reduce radiation dose to as low as reasonably achievable. COMPARISON: CT dated 05/04/2023 FINDINGS: No focal lesions seen in the liver, spleen, adrenal glands, pancreas, gallbladder, or kidneys. No dilated bowel loops or free fluid. Nonspecific small lymph nodes seen in the mesentery. IMPRESSION: 1. No CT findings to explain acute nonlocalized abdominal pain. Finalized by Jeremías Arnold MD on 08/03/2023 5:20 PM Normal [facility] DRUG SCREEN, URINEon 024 AMPHETAMINE/METHAMP Negative Normal NEG [facility] Comment on above: Result Comment: AMPH /METH screening cut off = 1000 ng/mL Performed By: #### D CORDERO #### [facility] ([id number]) [address] [place] [address] 40157 BARBITURATES Negative Normal NEG [facility] Comment on above: Result Comment: Flaquita iturates screening cut off value = 200 ng/mL Performed By: #### D CORDERO #### [facility] ([id number]) [address] [place] [address] 28244 BENZODIAZEPINES Negative Normal NEG [facility] Comment on above: Result Comment: Dawson odiazepines screening cut off value = 200 ng/mL Performed By: #### D CORDERO #### [facility] ([id number]) [address] [place] [address] 77689 CANNABINOIDS Positive Abnormal NEG [facility] Comment on above: Result Comment: Conf irmation available upon request. Cannabinoids/THC screening cut off value = 50 ng/mL Performed By: #### D CORDERO #### [facility] ([id number]) [address] [place] [address] 53584 COCAINE METABOLITE Negative Normal NEG [facility] Comment on above: Result Comment: Coca ine screening cut off value = 300 ng/mL Performed By: #### D CORDERO #### [facility] ([id number]) [address] [place] [address] 15532 ECSTASY Negative Normal NEG [facility] Comment on above: Result Comment: Ecst asy screening cut off value = 500 ng/mL This report is intended for use in clinical monitoring or management of patients. Performed By: #### D CORDERO #### [facility] ([id number]) [address] [place] [address] 69244 METHADONE Negative Normal [facility] Comment on above: Result Comment: Meth adone screening cut off value = 300 ng/mL. Performed By: #### D CORDERO #### [facility] ([id number]) [address] [place] [address] 52380 OPIATES Negative Normal [facility] Comment on above: Result Comment: Opia yvrose screening cut off value = 300 ng/mL NOTE: This test is used for the detection of codeine, hydrocodone (>1000 ng/mL), morphine and hydromorphone (>900 ng/mL) in urine. Performed By: #### D CORDERO #### [facility] ([id number]) [address] [place] [address] 55165 OXYCODONE Negative Normal NEG [facility] Comment on above: Result Comment: Oxyc odone screening cut off value = 300 ng/mL NOTE: This test is used for the detection of oxycodone and oxymorphone in urine. Performed By: #### D CORDERO #### [facility] ([id number]) [address] [place] [address] [place] [address] PHENCYCLIDINE Negative Normal NEG [facility] Comment on above: Result Comment: Phen cyclidine screening cut off value = 25 ng/mL Performed By: #### D CORDERO #### [facility] ([id number]) [address] [place] [address] 65045 HCG ( test) Ql (U)o n 08-03-2023 Beta HCG ( test) Ql (U) Negative Normal NEG [facility] Comment on above: Performed By: #### 2 106-3 #### [facility] ([id number]) [address] [place] [address] 37901 LIPASEon 08-03-2023 Lipase [Catalytic activity/Vol] 22 U/L Normal 17-[address] [facility] Comment on above: Performed By: #### C BCA, CMP, 3040-3, 14176-5, 29342-6 #### [facility] ([id number]) [address] [place] [address] 20400 MAGNESIUMon 08-03-2023 Magnesium [Mass/Vol] 1.9 mg/dL Normal 1.8-2.6 [facility] Comment on above: Performed By: #### C BCA, CMP, 3040-3, 63811-0, 35678-0 #### [facility] ([id number]) [address] [place] [id number] SARS/FLU A+B/RSV by NAAT/Mol ecularon 08-03-2023 SARS/FLU A+B/RSV by NAAT/Molecular FLU A PCR Negative (qualifier value) FLU B PCR Negative (qualifier value) RSV by PCR Negative (qualifier value) SARS CoV 2 Not detected (qualifier value) NOTE The Xpert Xpress SARS-CoV-2/Flu/RSV Plus test is a rapid, multiplexed real-time RT-PCR test intended for the simultaneous qualitative detection and differentiation of SARS-CoV-2, influenza A, influenza B and respiratory syncytial virus (RSV) viral RNA from individuals suspected of respiratory viral infection consistent with COVID-19 by their healthcare provider. This test has not been validated in asymptomatic patients. The Xpert Xpress SARS-CoV-2 test is intended for use by qualified and trained operators who are performing tests using either Limonetik DX or GeneXSmashFly InfinAxeda systems and is limited to laboratories that meet the CLIA requirements to perform high and moderate complexity tests. The Xpert Xpress SARS-CoV-2/Flu/RSV Plus is only for use under the Food and Drug Administration's Emergency Use Authorization. Results are for the simultaneous detection and differentiation of SARS-CoV-2, influenza A, influenza B and RSV nucleic acids in clinical specimens. SARS-CoV-2, influenza A, influenza B and RSV RNA identified by this test are generally detectable in upper respiratory samples during the acute phase of infection. Positive results are indicative of the presence of the identified virus, but do not rule out bacterial infection or co-infection with other pathogens not detected by this test. Clinical correlation with patient history and other diagnostic information is necessary to determine patient infection status. The agent detected may not be the definite cause of disease. Negative results do not preclude SARS-CoV-2, influenza A, influenza B and RSV infection and should not be used as the sole basis for treatment or other patient management decisions. Negative results must be combined with clinical observations, patient history and epidemiological information. An Invalid result may occur with specimen-associated inhibition unable to be resolved with specimen repeat. Fact Sheet for Healthcare Providers: https://www.fda.gov/m edia/280847/download Fact Sheet for Patients: https://www.fda.gov/m edia/711315/download Normal [facility] Comment on above: Performed By: #### C OVFLR #### [facility] ([id number]) [address] [place] [address] TROPONIN Ion 08-03-2023 Troponin I.cardiac [Mass/Vol] ng/mL Normal 0.00-0.[address] [facility] Comment on above: Performed By: #### C BCA, CMP, 3040-3, 49629-1, 02904-5 #### [facility] ([id number]) [address] [place] [id number] Outside Recordson 05-05-2023 Outside Records [id number] .00OTGTIFF Normal [facility] Outside Recordson 09-30-2022 Outside Records [id number] .00OTGTIFF Normal [facility] Encounters Encounter Date Encounter Type Care Provider Facility Start: 08-09-2023 ambulatory SANJUANA PALACIO [facility] Start: 08-07-2023 End: 08-08-2023 Emergency department patient visit MARLENA GLEASON [facility] Start: 08-06-2023 End: 08-06-2023 Emergency department patient visit SANJUANA REECE [facility] Start: 08-06-2023 End: 08-06-2023 [facility] Start: 08-03-2023 End: 08-04-2023 Emergency department patient visit ROBERTO BLAS [facility] Start: 08-03-2023 End: 08-03-2023 [facility] Start: 08-12-2022 End: 08-13-2022 ambulatory Sanjuana Duenas Facility:[facility] Payers Date Payer Category Payer Private Health Insurance [id number] 2020 Private Health Insurance [id number] 1999 Unknown [id number] 1999 Unknown [id number] Summary Purpose Family History No Family History Records FoundNo Family History Records Found Advance Directives No Advanced Directives Records FoundNo Advanced Directives Records Found Additional Source Comments INFORMATION SOURCE (unrecogn ized section and content) DATE CREATED AUTHOR 08/08/2023 [facility] DATE CREATED AUTHOR AUTHOR'S LASHAUN MILAN 08/11/2023 [facility] FOR RECORDS PERTAINING TO PATIENTS WHO ARE OR HAVE BEEN ENROLLED IN A CHEMICAL DEPENDENCY/SUBSTANCEABUSE PROGRAM, SOME INFORMATION MAY BE OMITTED. This clinical summary was aggregated from multiple sources. Caution should be exercised in using it in the provision of clinical care. This summary normalizes information from multiple sources, and as a consequence, information in this document may materially change the coding, format and clinical context of patient data. In addition, data may be omitted in some cases. CLINICAL DECISIONS SHOULD BE BASED ON THE PRIMARY CLINICAL RECORDS. [employer] [facility]. provides no warranty or guarantee of the accuracy or completeness of information in this document.
[2023-08-11 14:23] VITALS: BP 132/105; PULSE 129; RESP 18; TEMP 36.6; O2SAT 97; BMI 22.6
--- NOTE | 2023-08-11 14:50 | ED.GENADUL1 ---
HPI - General Adult General Chief complaint: Nausea/Vomiting/Diarrhea Stated complaint: PUKING BLOOD/ABDOMINAL PAIN Time Seen by Provider: 08/11/23 14:44 Source: patient Mode of arrival: walk-in Limitations: no limitations History of Present Illness HPI narrative: 22-year-old female presents because she vomited some streaks of blood. She was admitted at another hospital for three days and left two hours ago. When she got home she ate some bread and she retched and she vomited some streaks of blood. She doesn't have abdominal pain or throat pain and she is not short of breath. She doesn't have any pain anywhere now. She wanted to make sure that she is okay. Related Data Previous Rx's Medication Instructions Recorded ondansetron 4 mg disintegrating 4 mg PO Q8H PRN nausea and 08/08/23 tablet vomiting 5 days #10 tabs Allergies Allergy/AdvReac Type Severity Reaction Status Date / Time No Known Drug Allergies Allergy Verified 08/11/23 14:23 Review of Systems ROS Narrative A ten point review of systems is negative except as noted above. [facility] Medical History (Updated 08/11/23 @ 15:30 by Huog Ortega MD) Marijuana abuse, continuous ?F12.10 - Cannabis abuse, uncomplicated (ICD-10) Tobacco dependence ?F17.200 - Nicotine dependence, unspecified, uncomplicated (ICD-10) Social History (Updated 08/07/23 @ 16:02 by No Mendez) Within the past year, how often did you have a drink containing alcohol: 2-4 times a month Smoking status: Heavy tobacco smoker Non-prescribed substance use: cannabis (any form) Previous occupational history: [employer] Known occupational exposures/hazards: No Highest level of school completed/degree received: high school graduate Are you now , , , , never or living with a partner: never In a typical week, how many times do you talk on the telephone with family, friends, or neighbors: 3 or more times per week How often do you get together with friends or relatives: 3 or more times per week Little interest or pleasure in doing things: not at all Feeling down, depressed, or hopeless: not at all Feel stressed/tense/nervous/anxious/difficulty sleeping: not at all Do you think of yourself as: straight/heterosexual Gender Identity: female Exam Narrative Exam Narrative: Nurses note and vital signs reviewed and patient is not hypoxic. General: The patient appears well and in no apparent distress. Patient is resting comfortably on cart. Skin: Warm, dry, no pallor noted. There is no rash noted. Head: Normocephalic, atraumatic Eye: Normal conjunctiva, no drainage Ears, Nose, Mouth, and Throat: oral mucosa is moist. Nares patent. no pharyngeal erythema nor any blood in the pharynx. Cardiovascular: Regular Rate and Rhythm Respiratory: Patient is in no distress, no accessory muscle use, lungs are clear to auscultation, no wheezing, rales or rhonchi Back: non-tender, no CVA tenderness bilaterally to percussion. GI: no tenderness to palpation, no masses appreciated. No rebound, guarding, or rigidity noted. Musculoskeletal: The patient has no evidence of calf tenderness, no pitting edema, symmetrical pulses noted bilaterally Neurological: A&O, normal speech Psychiatric: Cooperative Constitutional Vital Signs, click to edit/add: Last Vital Signs Temp 97.8 F 08/11/23 14:23 Pulse 129 H 08/11/23 14:23 Resp 18 08/11/23 14:23 BP 132/105 H 08/11/23 14:23 Pulse Ox 97 08/11/23 14:23 O2 Del Method Room Air 08/11/23 14:23 Course Vital Signs Vital signs: Vital Signs Temperature 97.8 F 08/11/23 14:23 Pulse Rate 129 H 08/11/23 14:23 Respiratory Rate 18 08/11/23 14:23 Blood Pressure 132/105 H 08/11/23 14:23 Pulse Oximetry 97 08/11/23 14:23 Oxygen Delivery Method Room Air 08/11/23 14:23 Temperature 97.8 F 08/11/23 14:23 Pulse Rate 129 H 08/11/23 14:23 Respiratory Rate 18 08/11/23 14:23 Blood Pressure 132/105 H 08/11/23 14:23 Pulse Oximetry 97 08/11/23 14:23 Oxygen Delivery Method Room Air 08/11/23 14:23 Medical Decision Making MDM Narrative Medical decision making narrative: Hemoglobin is appropriate. She was reassured and discharged home. She's had no further symptoms. Findings were discussed with the patient. Medical Records Medical records reviewed: Yes I reviewed the patient's medical records Lab Data Lab results reviewed: Yes I reviewed the patient's lab results Labs: Lab Results 08/11/23 Range/Units 15:10 WBC 8.0 (4.0-11.0) 10^3/uL RBC 5.10 (4.20-5.40) 10^6/uL Hgb 14.7 (12.0-16.0) g/dL Hct 42.9 (36.0-48.0) % MCV 84.1 (81.0-99.0) fL MCH 28.8 (26.7-34.0) pg MCHC 34.3 (29.9-35.2) g/dL RDW 12.2 (11.0-15.0) % Plt Count 259 (150-450) 10^3/uL MPV 9.6 (9.5-13.5) fL Neut % (Auto) 74.7 (43.0-75.0) % Lymph % (Auto) 16.4 L (20.5-60.0) % [place] % (Auto) 8.1 (1.7-12.0) % Eos % (Auto) 0.2 L (0.9-7.0) % Baso % (Auto) 0.4 (0.2-2.0) % Neut # (Auto) 6.0 (1.4-6.5) 10^3/uL Lymph # (Auto) 1.3 (1.2-3.8) 10^3/uL [place] # (Auto) 0.7 (0.3-0.8) 10^3/uL Eos # (Auto) 0.0 (0.0-0.7) 10^3/uL Baso # (Auto) 0.0 (0.0-0.1) 10^3/uL Abs Immat Gran (auto) 0.02 (0.00-0.03) 10^3/uL Imm/Tot Granulo (auto) 0.2 (0.0-0.5) % Discharge Plan Discharge Chief Complaint: Nausea/Vomiting/Diarrhea Clinical Impression: Hematemesis Patient Disposition: Home, Self-Care Time of Disposition Decision: 15:30 Condition: Good Mode of Transportation: Private Vehicle Prescriptions / Home Meds: No Action ondansetron 4 mg tablet,disintegrating 4 mg PO Q8H PRN (Reason: nausea and vomiting) 5 Days Qty: 10 0RF Instructions: Acute Nausea and Vomiting (ED), Hematemesis (ED) Stand Alone Forms: Portal Instructions Referrals: Physician,Non-Staff, MD [Primary Care Provider] - 1 week
[2023-08-11 15:20] LABS: Basophils Percent Auto 0.4 % (0.2-2.0); Eosinophils Percent Auto 0.2 % (0.9-7.0); Hematocrit 42.9 % (36.0-48.0); Hemoglobin 14.7 g/dL (12.0-16.0); Immature Granulocytes Abs Auto 0.02 10^3/uL (0.00-0.03); Immature Granulocytes Pct Auto 0.2 % (0.0-0.5); Lymphocytes Absolute Auto 1.3 10^3/uL (1.2-3.8); Lymphocytes Percent Auto 16.4 % (20.5-60.0); Mean Corpuscular HGB Conc 34.3 g/dL (29.9-35.2); Mean Corpuscular Hemoglobin 28.8 pg (26.7-34.0); Mean Corpuscular Volume 84.1 fL (81.0-99.0); Mean Platelet Volume 9.6 fL (9.5-13.5); Monocytes Absolute Auto 0.7 10^3/uL (0.3-0.8); Monocytes Percent Auto 8.1 % (1.7-12.0); Neutrophils Percent Auto 74.7 % (43.0-75.0); Platelet Count 259 10^3/uL (150-450); Red Cell Distribution Width 12.2 % (11.0-15.0)
== END 2023-08-11 15:54 | disposition home or self-care (01) ==
PROVIDERS: Emergency Provider Emergency Medicine
DX: K92.0 Hematemesis (principal); F12.10 Cannabis abuse, uncomplicated; F17.210 Nicotine dependence, cigarettes, uncomplicated
CPT/HCPCS: 36415; 85025; 99283